=== PATIENT | male | born 1940 | race Caucasian/White ===

== ENCOUNTER 2017-12-19 13:40 | Emergency (ER) | payer MEDICARE ==
[2017-12-19 14:17] LABS: Absolute Lymphocytes (CBC) 1.6 K/uL (0.7-4.9); Absolute Monocytes 0.6 K/uL (0.1-1.3); Absolute Neutrophil 1.7 K/uL (1.8-8.0); Basophils % 0.3 % (0-1.3); Eosinophils % 0.5 % (0-4.4); Hematocrit 40.6 % (39.6-49.0); Lymphocytes % 40.4 % (15.3-44.8); MCH 34.7 pg (27.0-35.0); MPV 9.8 fL (7.6-11.3); Monocytes % 15.2 % (3.3-12.3); RBC Red Blood Cell Count 3.87 M/uL (4.33-5.43)
[2017-12-19 14:21] LABS: Protime INR 0.93
[2017-12-19 14:37] LABS: ALT/SGPT 23 U/L (12-78); AST/SGOT 39 U/L (15-37); Alkaline Phosphatase 145 U/L (45-117); BUN Blood Urea Nitrogen 6 mg/dL (7-18); Bicarbonate 23 mmol/L (21-32); Bilirubin Direct 0.1 mg/dL (0-0.2); Bilirubin Total 0.5 mg/dL (0.2-1.0); Creatine Phosphokinase 67 U/L (39-308); Glucose Level 63 mg/dL (74-106); Sodium Level 137 mmol/L (136-145)
[2017-12-19 14:38] LABS: Alcohol Serum/Plasma 157 mg/dL (0-3)
[2017-12-19] MEDS ORDERED: D50W 25 GM/50 ML SYRINGE IV ONE (14:52)
--- NOTE | 2017-12-19 15:15 | ER ---
Nurse's Notes [facility] Name: Durga Sequeira Age: 77 yrs Sex: Male : 1940 Arrival Date: 12/19/2017 Time: 13:42 Bed 4 Private MD: Diagnosis: Alcohol use, unspecified with intoxication Presentation: 12/19 13:51 Presenting complaint: EMS states: Patient found asleep in truck by EMS. 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 PAtient is alert to person and place. Combative and requesting to leave. Urinary incontinence noted. Patient diaphoretic and face is flushed. Transition of care: patient was not received from another setting of care. Onset of symptoms was December 19, 2017. Risk Assessment: Do you want to hurt yourself or someone else? Other: Patient is disoriented and agitated at this time. Initial Sepsis Screen: Does the patient meet any 2 criteria? No. Patient's initial sepsis screen is negative. Does the patient have a suspected source of infection? No. Patient's initial sepsis screen is negative. Care prior to arrival: None. 13:51 Method Of Arrival: EMS: [facility] 13:51 Acuity: LATANYA 2 Triage Assessment: 13:55 General: Appears in no apparent distress. slender, unkempt, Behavior is agitated, aj anxious, combative. Pain: Denies pain. Neuro: Level of Consciousness is awake, confused, Oriented to person, place, Services Executive are equal bilaterally Moves all extremities. Full function Speech is normal, Facial symmetry appears normal, Pupils are PERRLA. Respiratory: Airway is patent Respiratory effort is even, unlabored, Respiratory pattern is regular, symmetrical. GI: Abdomen is flat. Derm: Skin is intact, is fragile, is thin, Skin is pink, warm \T\ dry. normal, Bruising that is dark purple, on left cheek, left eye and palmar aspect of right forearm. Historical: - Allergies: 13:55 PENICILLINS; aj - Home Meds: 13:55 Unable to obtain [Active]; aj - PMHx: 13:55 Unable to obtain; aj - PSHx: 13:55 wrist sx; aj - Immunization history:: Adult Immunizations up to date. - Social history:: Smoking status: Patient uses tobacco products, chewing tobacco. - Ebola Screening: : Patient negative for fever greater than or equal to 101.5 degrees Fahrenheit, and additional compatible Ebola Virus Disease symptoms Patient denies exposure to infectious person Patient denies travel to an Ebola-affected area in the 21 days before illness onset No symptoms or risks identified at this time. Screenin:58 Abuse screen: Denies threats or abuse. Denies injuries from another. Nutritional aj screening: No deficits noted. Tuberculosis screening: No symptoms or risk factors identified. Fall Risk None identified. Assessment: 13:58 Reassessment: Security guards at bedside. aj 15:21 Reassessment: Patient's son Durga arrived and spoke with Nasim Overton about diagnosis. aj Patient ate half a turkey sandwich and drank a coke. Ambulated to lobby with son. [place] returned to son. Vital Signs: 13:55 BP 136 / 82; Pulse 100; Resp 20; Temp 98.9; Pulse Ox 98% on R/A; Weight 79.38 kg; aj Height 6 ft. 0 in. (182.88 cm); 15:21 aj 13:55 Body Mass Index 23.73 (79.38 kg, 182.88 cm) aj 15:21 Patient refused vital signs aj ED Course: 13:42 Patient arrived in ED. iw 13:45 Nasim Overton PA is PHCP. jrAlfredito 13:45 Benja Beth MD is Attending Physician. jrAlfredito 13:51 Heather Kent, JEREMY is Primary Nurse. aj 13:55 Triage completed. aj 13:55 Arm band placed on left wrist. Patient placed in an exam room, on a stretcher, on pulse aj oximetry. 13:58 Patient has correct armband on for positive identification. Bed in low position. Side aj rails up X2. Adult w/ patient. Pulse ox on. Sitter at bedside. Notified Charge Nurse of Patient's mental status and need for sitter. 13:59 Inserted saline lock: 20 gauge in right forearm, using aseptic technique. Blood aj collected. 15:21 No provider procedures requiring assistance completed. IV discontinued, intact, aj bleeding controlled. Administered Medications: 14:56 Drug: D50W 25 ml Route: IVP; Site: right antecubital; aj 15:24 Follow up: Response: No adverse reaction aj Outcome: 15:14 Discharge ordered by MD. jrAlfredito 15:23 Discharged to home ambulatory, with family. vasu 15:23 Condition: good 15:23 Discharge instructions given to patient, family, Instructed on discharge instructions, follow up and referral plans. Demonstrated understanding of instructions, follow-up care. 15:24 Patient left the ED. vasu Signatures: Heather Kent RN RN aj Williams, Irene, RN RN iw Roszak, Josh, PA PA jr8
--- NOTE | 2017-12-19 15:15 | EDPHYS ---
Physician Documentation [facility] Name: Durga Sequeira Age: 77 yrs Sex: Male : 1940 Arrival Date: 12/19/2017 Time: 13:42 Bed 4 Private MD: ED Physician Benja Beth HPI: 12/19 15:14 This 77 yrs old Male presents to ER via EMS with complaints of no complaint. jr8 15:14 The patient presents with agitation, confusion. Onset: The symptoms/episode jr8 began/occurred acutely, today. Possible causes: alcohol. Associated signs and symptoms: The patient has no apparent associated signs or symptoms. Current symptoms: In the emergency department the patient's symptoms are unchanged from the initial presentation. Patient's baseline: Neuro: alert and fully oriented, Motor: no deficits, Ambulation: walks without assistance, Speech: normal. It is unknown whether or not the patient has had similar symptoms in the past. It is unknown whether or not the patient has recently seen a physician. Patient brought in by EMS after they were called out because patient was falling outside getting out of truck. Stated that he smells of alcohol. Stated that patient was saying he was at his ex-wife apartment but they had found him at [facility] . Historical: - Allergies: 13:55 PENICILLINS; aj - Home Meds: 13:55 Unable to obtain [Active]; aj - PMHx: 13:55 Unable to obtain; aj - PSHx: 13:55 wrist sx; aj - Immunization history:: Adult Immunizations up to date. - Social history:: Smoking status: Patient uses tobacco products, chewing tobacco. - Ebola Screening: : Patient negative for fever greater than or equal to 101.5 degrees Fahrenheit, and additional compatible Ebola Virus Disease symptoms Patient denies exposure to infectious person Patient denies travel to an Ebola-affected area in the 21 days before illness onset No symptoms or risks identified at this time. ROS: 15:14 Eyes: Negative for injury, pain, redness, and discharge, ENT: Negative for injury, jr8 pain, and discharge, Neck: Negative for injury, pain, and swelling, Cardiovascular: Negative for chest pain, palpitations, and edema, Respiratory: Negative for shortness of breath, cough, wheezing, and pleuritic chest pain, Abdomen/GI: Negative for abdominal pain, nausea, vomiting, diarrhea, and constipation, Back: Negative for injury and pain, MS/Extremity: Negative for injury and deformity, Skin: Negative for injury, rash, and discoloration, Neuro: Negative for headache, weakness, numbness, tingling, and seizure. Exam: 15:14 Eyes: Pupils equal round and reactive to light, extra-ocular motions intact. Lids and jr8 lashes normal. Conjunctiva and sclera are non-icteric and not injected. Cornea within normal limits. Periorbital areas with no swelling, redness, or edema. ENT: Nares patent. No nasal discharge, no septal abnormalities noted. Tympanic membranes are normal and external auditory canals are clear. Oropharynx with no redness, swelling, or masses, exudates, or evidence of obstruction, uvula midline. Mucous membranes moist. Neck: Trachea midline, no thyromegaly or masses palpated, and no cervical lymphadenopathy. Supple, full range of motion without nuchal rigidity, or vertebral point tenderness. No Meningismus. Chest/axilla: Normal chest wall appearance and motion. Nontender with no deformity. No lesions are appreciated. Cardiovascular: Regular rate and rhythm with a normal S1 and S2. No gallops, murmurs, or rubs. Normal PMI, no JVD. No pulse deficits. Respiratory: Lungs have equal breath sounds bilaterally, clear to auscultation and percussion. No rales, rhonchi or wheezes noted. No increased work of breathing, no retractions or nasal flaring. Abdomen/GI: Soft, non-tender, with normal bowel sounds. No distension or tympany. No guarding or rebound. No evidence of tenderness throughout. Back: No spinal tenderness. No costovertebral tenderness. Full range of motion. Skin: Warm, dry with normal turgor. Normal color with no rashes, no lesions, and no evidence of cellulitis. MS/ Extremity: Pulses equal, no cyanosis. Neurovascular intact. Full, normal range of motion. 15:14 Constitutional: The patient appears alert, agitated, Patient is disheveled 15:14 Head/face: Noted is ecchymosis, that is mild, of the left side of forehead, left eye and left restorationism. 15:14 Neuro: Orientation: to person, place, situation, Mentation: lucid, able to follow commands, Memory: is normal, Cerebellar function: is grossly normal, Motor: moves all fours, Sensation: is normal, Gait: is steady, seizure activity, is not displayed by the patient, Abnormal movements: there are no abnormal movements. Vital Signs: 13:55 BP 136 / 82; Pulse 100; Resp 20; Temp 98.9; Pulse Ox 98% on R/A; Weight 79.38 kg; aj Height 6 ft. 0 in. (182.88 cm); 15:21 aj 13:55 Body Mass Index 23.73 (79.38 kg, 182.88 cm) aj 15:21 Patient refused vital signs aj MDM: 13:45 Patient medically screened. [facility] 15:13 Data reviewed: vital signs, nurses notes, lab test result(s), and as a result, I will jr discharge patient. Data interpreted: Pulse oximetry: on room air is 98 %. Interpretation: normal. Counseling: I had a detailed discussion with the patient and/or guardian regarding: the historical points, exam findings, and any diagnostic results supporting the discharge/admit diagnosis, lab results, the need for outpatient follow up, a family practitioner, to return to the emergency department if symptoms worsen or persist or if there are any questions or concerns that arise at home. 15:14 ED course: We were able to get a hold of son of patient. He came and evaluated mental jr8 status and stated that he is acting like he always dose and does not see any difference in his mentation. Advised that because of his recent falls today and at home that a head CT would be a good idea with the alcohol to make sure there is no intracranial process. Both patient and son declined. Released patient into sons custody to go home . 12/19 13:46 Order name: Basic Metabolic Panel; Complete Time: 14:41 12/19 13:46 Order name: CBC with Diff; Complete Time: 14:22 12/19 13:46 Order name: ETOH Level; Complete Time: 14:41 12/19 13:46 Order name: Hepatic Function; Complete Time: 14:41 12/19 13:46 Order name: PT-INR; Complete Time: 14:23 12/19 13:46 Order name: IV Saline Lock; Complete Time: 14:57 12/19 13:46 Order name: Labs collected and sent; Complete Time: 14:57 [facility] 12/19 13:46 Order name: CK; Complete Time: 14:41 [facility] 12/19 14:54 Order name: Diet Regular; Complete Time: 14:54 ag Administered Medications: 14:56 Drug: D50W 25 ml Route: IVP; Site: right antecubital; 15:24 Follow up: Response: No adverse reaction aj Disposition: 16:51 Co-signature as Attending Physician, Benja Beth MD. rn Disposition: 12/19/17 15:14 Discharged to Home. Impression: Alcohol use, unspecified with intoxication. - Condition is Stable. - Discharge Instructions: Alcohol Intoxication, Dehydration, Adult. - Medication Reconciliation Form, Thank You Letter, Antibiotic Education, Prescription Opioid Use form. - Follow up: Private Physician; When: 2 - 3 days; Reason: Recheck today's complaints, Continuance of care, Re-evaluation by your physician. - Problem is new. - Symptoms have improved. Signatures: Dispatcher [employer] EDHeather Hightower RN RN aj Nieto, Roman, MD MD rn Roszak, Josh, GOLD PA jr8 Corrections: (The following items were deleted from the chart) 14:57 13:46 EKG - Nurse/Tech ordered. [facility][1] 14:57 13:46 Urine Dipstick-Ancillary ordered. [facility][1] 15:24 15:14 12/19/2017 15:14 Discharged to Home. Impression: Alcohol use, unspecified with aj intoxication. Condition is Stable. Forms are Medication Reconciliation Form, Thank You Letter, Antibiotic Education, Prescription Opioid Use. Follow up: Private Physician; When: 2 - 3 days; Reason: Recheck today's complaints, Continuance of care, Re-evaluation by your physician. Problem is new. Symptoms have improved. jr8
== END 2017-12-19 15:24 | disposition home or self-care (01) ==
LOC: ER 13:40
DX: F10.129 Alcohol abuse with intoxication, unspecified (principal); Z72.0 Tobacco use; Z88.0 Allergy status to penicillin
CPT/HCPCS: 36415; 80048; 80076; 80320; 82550; 85025; 85610; 96374; 99285

== ENCOUNTER 2020-01-14 17:41 | Observation (INO) | payer OTHER ==
[2020-01-14 19:11] LABS: Absolute Lymphocytes (CBC) 1.2 K/uL (0.7-4.9); Basophils % 0.8 % (0-1.3); Hematocrit 39.9 % (39.6-49.0); Lymphocytes % 26.4 % (15.3-44.8); MPV 9.9 fL (7.6-11.3); RBC Red Blood Cell Count 4.32 M/uL (4.33-5.43)
[2020-01-14] MEDS ORDERED: FENTANYL CITR 100 MCG/2 ML ONE ×3 (19:14→20:39)
[2020-01-14] MEDS ORDERED: ONDANSETRON 4 MG/2 ML VIAL ONE ×2 (19:15→19:21)
[2020-01-14 19:28] LABS: ALT/SGPT 19 U/L (12-78); AST/SGOT 20 U/L (15-37); Albumin 3.3 g/dL (3.4-5.0); Alkaline Phosphatase 99 U/L (45-117); BUN Blood Urea Nitrogen 9 mg/dL (7-18); Bicarbonate 28 mmol/L (21-32); Bilirubin Direct 0.2 mg/dL (0-0.2); Bilirubin Total 0.5 mg/dL (0.2-1.0); Glucose Level 98 mg/dL (74-106); Lipase 151 U/L (73-393); Potassium 4.3 mmol/L (3.5-5.1); Protein, Total 6.1 g/dL (6.4-8.2); Sodium Level 132 mmol/L (136-145)
--- NOTE | 2020-01-14 19:38 | EDPHYS ---
Physician Documentation [facility] Name: Durga Sequeira Age: 79 yrs Sex: Male : 1940 Arrival Date: 01/14/2020 Time: 17:44 Bed 5 Private MD: ED Physician Wil Iraheta HPI: 01/13 19:17 This 79 yrs old Male presents to ER via Ambulatory with complaints of jr8 Abdominal Pain. 19:17 The patient presents with abdominal pain in the lower abdomen. Onset: The jr8 symptoms/episode began/occurred acutely, today. The symptoms do not radiate. Associated signs and symptoms: none. The symptoms are described as stabbing. Modifying factors: The symptoms are alleviated by nothing, the symptoms are aggravated by movement. Severity of pain: At its worst the pain was moderate in the emergency department the pain is unchanged. The patient has not experienced similar symptoms in the past. The patient has not recently seen a physician. Historical: - Allergies: 17:58 PENICILLINS; ll1 - PMHx: 17:58 Hypertension; prostate pills; ll1 - PSHx: 17:58 wrist sx; ll1 - Immunization history:: Adult Immunizations up to date. - Social history:: Smoking status: Patient reports the use of cigarette tobacco products, cigars, Patient uses alcohol, only on a social basis. Patient/guardian denies using street drugs. ROS: 19:17 Eyes: Negative for injury, pain, redness, and discharge, ENT: Negative for injury, jr8 pain, and discharge, Neck: Negative for injury, pain, and swelling, Cardiovascular: Negative for chest pain, palpitations, and edema, Respiratory: Negative for shortness of breath, cough, wheezing, and pleuritic chest pain, Back: Negative for injury and pain, MS/Extremity: Negative for injury and deformity, Skin: Negative for injury, rash, and discoloration, Neuro: Negative for headache, weakness, numbness, tingling, and seizure. 19:17 Abdomen/GI: Positive for abdominal pain, Negative for nausea, vomiting, and diarrhea, abdominal cramps, abdominal distension, anorexia, dysphagia, hematemesis, black/tarry stool, rectal pain, rectal bleeding, bowel incontinence, flatulence. Exam: 19:17 Cardiovascular: Regular rate and rhythm with a normal S1 and S2. No gallops, murmurs, jr8 or rubs. Normal PMI, no JVD. No pulse deficits. Respiratory: Lungs have equal breath sounds bilaterally, clear to auscultation and percussion. No rales, rhonchi or wheezes noted. No increased work of breathing, no retractions or nasal flaring. Back: No spinal tenderness. No costovertebral tenderness. Full range of motion. Skin: Warm, dry with normal turgor. Normal color with no rashes, no lesions, and no evidence of cellulitis. MS/ Extremity: Pulses equal, no cyanosis. Neurovascular intact. Full, normal range of motion. Neuro: Awake and alert, GCS 15, oriented to person, place, time, and situation. Cranial nerves II-XII grossly intact. Motor strength 5/5 in all extremities. Sensory grossly intact. Cerebellar exam normal. Normal gait. 19:17 Abdomen/GI: Inspection: abdomen appears normal, Bowel sounds: active, all quadrants, Palpation: abdomen is soft and non-tender, in all quadrants, Indicators: McBurney's point is not tender, Hamm's sign is negative, Rovsing's sign is negative, Liver: tenderness, is not appreciated, Hernia: noted in the left inguinal area, incarceration, that is moderate, tenderness, that is moderate. Vital Signs: 17:56 BP 157 / 85; Pulse 72; Resp 17; Temp 98.5; Pulse Ox 97% ; Pain 9/10; ll1 19:52 BP 149 / 72; Pulse 70; Resp 18; Pulse Ox 98% on R/A; ea 20:24 BP 140 / 74; Pulse 70; Resp 17; Pulse Ox 98% on R/A; ea MDM: 18:31 Patient medically screened. [facility] 19:34 Data reviewed: vital signs, nurses notes, lab test result(s), and as a result, I will [facility] admit patient. Data interpreted: Pulse oximetry: on room air is 97 %. Interpretation: normal. Counseling: I had a detailed discussion with the patient and/or guardian regarding: the historical points, exam findings, and any diagnostic results supporting the discharge/admit diagnosis, lab results, radiology results, the need for further work-up and treatment in the hospital. Physician consultation: Scooby Dill MD was called at 19:35, was contacted at 19:35, regarding consult, and will see patient in ED, shortly. 01/13 18:31 Order name: Basic Metabolic Panel; Complete Time: 19:33 [facility] 01/13 18:31 Order name: CBC with Diff; Complete Time: 19:56 [facility] 01/13 18:31 Order name: Hepatic Function; Complete Time: 19:33 [facility] 01/13 18:31 Order name: Lipase; Complete Time: 19:33 [facility] 01/13 19:47 Order name: CBC Smear Scan; Complete Time: 19:56 [facility] 01/13 20:24 Order name: Chest Single View [facility] 01/13 18:31 Order name: IV Saline Lock; Complete Time: 19:10 [facility] 01/13 18:31 Order name: Labs collected and sent; Complete Time: 19:10 [facility] 01/13 20:24 Order name: NPO [facility] 01/13 20:24 Order name: EKG Electrocardiogram EDMS Administered Medications: 19:05 Drug: Zofran (Ondansetron) 4 mg Route: IVP; Site: right forearm; em 19:53 Follow up: Response: No adverse reaction ea 19:07 Drug: fentaNYL (PF) 50 mcg Route: IVP; Site: right forearm; em 19:53 Follow up: Response: No adverse reaction ea 19:53 Follow up: Response: RASS: Alert and Calm (0) ea Disposition: 01/14 08:20 Co-signature as Attending Physician, Wil Iraheta MD I agree with the assessment and kdr plan of care. Disposition: 01/14/20 19:38 Hospitalization ordered by Jaya Tellez for Observation. Preliminary diagnosis is Left Inguinal Hernia with Strangulation. Not reducible . - Bed requested for Telemetry/MedSurg (observation). - Status is Observation. ea - Condition is Stable. - Problem is new. - Symptoms are unchanged. Signatures: Dispatcher [employer] [facility] Wil Iraheta MD MD kdr Munoz, Edgar, RN RN em Nasim Overton PA PA jr8 Kinjal Olivas RN RN ea Lewis, Lynsay, RN RN ll1 Corrections: (The following items were deleted from the chart) 01/13 20:25 19:38 Hospitalization Ordered by Jaya Tellez MD for Observation. Preliminary ea diagnosis is Left Inguinal Hernia with Strangulation. Not reducible . Bed requested for Telemetry/MedSurg (observation). Status is Observation. Condition is Stable. Problem is new. Symptoms are unchanged. jr8
--- NOTE | 2020-01-14 19:38 | ER ---
Nurse's Notes [facility] Name: Durga Sequeira Age: 79 yrs Sex: Male : 1940 Arrival Date: 01/14/2020 Time: 17:44 Bed 5 Private MD: Diagnosis: Left Inguinal Hernia with Strangulation. Not reducible Presentation: 01/13 17:56 Chief complaint: Patient states: Lower mid abdominal pain since noon getting worse. ll1 Coronavirus screen: Patient denies a cough. Patient denies shortness of breath or difficulty breathing. Patient denies measured and/or subjective temperature greater than 100.4F prior to today's visit. Patient denies travel on a cruise ship or to a country the [facility] currently lists as an affected area. Patient denies contact with known and/or suspected case of COVID-19. Proceed with normal triage. Ebola Screen: Patient denies travel to an Ebola-affected area in the 21 days before illness onset. Initial Sepsis Screen: Does the patient meet any 2 criteria? No. Patient's initial sepsis screen is negative. Risk Assessment: Do you want to hurt yourself or someone else? Patient reports no desire to harm self or others. Onset of symptoms was January 14, 2020. 17:56 Method Of Arrival: Ambulatory ll1 17:56 Acuity: LATANYA 3 ll1 19:53 Initial Sepsis Screen: Does the patient have a suspected source of infection? No. ea Patient's initial sepsis screen is negative. Historical: - Allergies: 17:58 PENICILLINS; ll1 - PMHx: 17:58 Hypertension; prostate pills; ll1 - PSHx: 17:58 wrist sx; ll1 - Immunization history:: Adult Immunizations up to date. - Social history:: Smoking status: Patient reports the use of cigarette tobacco products, cigars, Patient uses alcohol, only on a social basis. Patient/guardian denies using street drugs. Screenin:00 Abuse screen: Denies threats or abuse. Nutritional screening: No deficits noted. em Tuberculosis screening: No symptoms or risk factors identified. Fall Risk None identified. Assessment: 18:55 General: Appears in no apparent distress. uncomfortable, Behavior is calm, cooperative, em appropriate for age, Denies fever. Pain: Complains of pain in right lower quadrant, left lower quadrant and pelvis. Neuro: Level of Consciousness is awake, alert, obeys commands, Oriented to person, place, time, situation, Appropriate for age. Cardiovascular: Capillary refill < 3 seconds Patient's skin is warm and dry. Respiratory: Airway is patent Respiratory effort is even, unlabored, Respiratory pattern is regular, symmetrical. GI: Abdomen is flat, Bowel sounds present X 4 quads. Abd is soft X 4 quads Abdomen is tender to palpation in right lower quadrant and left lower quadrant Patient currently denies nausea, vomiting. Derm: Skin is intact, is fragile, is thin, Skin is pink, warm \T\ dry. Musculoskeletal: Range of motion: intact in all extremities. 19:27 General: Appears in no apparent distress. Behavior is calm, cooperative, appropriate ea for age. Pain: Complains of pain in left inguinal area. Neuro: Level of Consciousness is awake, alert, obeys commands, Oriented to person, place, time, situation. Cardiovascular: Patient's skin is warm and dry. Respiratory: Airway is patent Respiratory effort is even, unlabored, Respiratory pattern is regular, symmetrical. Derm: Skin is pink, warm \T\ dry. 19:50 Reassessment: Patient and/or family updated on plan of care and expected duration. Pain ea level reassessed. Patient is alert, oriented x 3, equal unlabored respirations, skin warm/dry/pink. Surgeon at bedside updating pt on plan of care. 20:24 Reassessment: Patient and/or family updated on plan of care and expected duration. Pain ea level reassessed. Patient is alert, oriented x 3, equal unlabored respirations, skin warm/dry/pink. Pt admitted to OR report given to OR nurse. Vital Signs: 17:56 BP 157 / 85; Pulse 72; Resp 17; Temp 98.5; Pulse Ox 97% ; Pain 9/10; ll1 19:52 BP 149 / 72; Pulse 70; Resp 18; Pulse Ox 98% on R/A; ea 20:24 BP 140 / 74; Pulse 70; Resp 17; Pulse Ox 98% on R/A; ea ED Course: 17:44 Patient arrived in ED. mr 17:57 Triage completed. ll1 17:58 Arm band placed on Patient placed in an exam room, on a stretcher. ll1 18:19 Lupillo Fagan, JEREMY is Primary Nurse. em 18:31 Nasim Overton PA is PHCP. jr8 18:31 Wil Iraheta MD is Attending Physician. jr8 19:04 Initial lab(s) drawn, by me, sent to lab. Inserted saline lock: 20 gauge in right em forearm, using aseptic technique. Blood collected. 19:27 Patient has correct armband on for positive identification. Placed in gown. Bed in low ea position. Call light in reach. 19:27 No provider procedures requiring assistance completed. ea 19:36 Jaya Tellez MD is Hospitalizing Provider. jr8 20:24 Patient admitted, IV remains in place. ea Administered Medications: 19:05 Drug: Zofran (Ondansetron) 4 mg Route: IVP; Site: right forearm; em 19:53 Follow up: Response: No adverse reaction ea 19:07 Drug: fentaNYL (PF) 50 mcg Route: IVP; Site: right forearm; em 19:53 Follow up: Response: No adverse reaction ea 19:53 Follow up: Response: RASS: Alert and Calm (0) ea Outcome: 19:38 Decision to Hospitalize by Provider. jr8 19:52 Instructed on the need for admit, Demonstrated understanding of instructions. ea 20:24 Admitted to OR accompanied by tech, via stretcher, with chart, Report called to Report ea given to OR nurse 20:24 Condition: stable 20:25 Patient left the ED. ea Signatures: Beverly Navarro mr FaganLupillo, RN JEREMY Nasim Overton PA PA jr8 Kinjal Olivas RN RN ea Lewis, Lynsay, RN RN ll1
[2020-01-14 19:46] LABS: Blood Morphology Comment NOT SEEN (NOT SEEN); Platelet Estimate DECR; Urine White Blood Cell Casts OK
[2020-01-14] MEDS ORDERED: ONDANSETRON 4 MG/2 ML VIAL IV PRN (20:19)
[2020-01-14] MEDS ORDERED: ACETAMINOPHEN 500 MG TAB PO PRN (20:19)
[2020-01-14] MEDS ORDERED: HYDROMORPHONE HCL 1 MG/ML INJ IV PRN (20:19)
[2020-01-14] MEDS ORDERED: BUPIVACA 0.25%/EPI 0.0005%/PF 30 ML VIAL ONE (20:26)
[2020-01-14] MEDS ORDERED: propofoL 200 MG/20 ML VIAL IV ONE (20:38)
[2020-01-14] MEDS ORDERED: ROCURONIUM 50 MG/5 ML VIAL IV ONE (20:39)
[2020-01-14] MEDS ORDERED: LIDOCAINE 2% MPF 5 ML VIAL ONE (20:39)
[2020-01-14] MEDS: Ringers Lactate 1,000 ML IV SCH ×3 (20:40→23:54)
[2020-01-14] MEDS ORDERED: SUCCINYLCHOLINE 20 MG/ML (10 ML) IV ONE (20:51)
[2020-01-14] MEDS ORDERED: KETOROLAC 30 MG/ML INJ ONE (21:05)
[2020-01-14] MEDS ORDERED: dexAMETHasone 10 MG/ML VIAL ONE (21:05)
[2020-01-14] MEDS ORDERED: NEOSTIGMINE 1 MG/ML -5 ML ONE (21:22)
[2020-01-14] MEDS ORDERED: GLYCOPYRROLATE 0.2 MG/ML SYR ONE (21:22)
[2020-01-14] MEDS ORDERED: CLINDAMYCIN IV 150 MG/ML (6 mL) VIAL ONE (21:24)
[2020-01-14] MEDS ORDERED: NA CHLORIDE 0.9% 100 ML ONE (21:25)
[2020-01-14] MEDS ORDERED: EPHEDRINE SULF 50 MG/ML VIAL ONE (21:25)
--- NOTE | 2020-01-14 21:54 | P.OP ---
Preoperative diagnosis: LEFT Incarcerated Inguinal Hernia - recurrent Postoperative diagnosis: LEFT Incarcerated Inguinal Hernia - recurrent Primary procedure: Open LEFT Inguinal Hernia Repair with Mesh Anesthesia: GETA + Local Estimated blood loss: <10cc Specimen: None Findings: Indirect Hernia, Evidence of prior hernia repair Complications: None Implants: Medium Bard Perfix Plug and Patch Transferred to: Recovery Room Condition: Good
[2020-01-14] MEDS ORDERED: HYDROCODONE/APAP 5/325 MG TAB PO PRN (22:08)
[2020-01-14 22:31] VITALS: O2SAT 96
[2020-01-14 23:41] VITALS: BMI 19.3
--- NOTE | 2020-01-14 23:50 | CON ---
Date of Consultation: 01/14/2020 Brief History Of Present Illness: The patient is an 79-year-old male, who presents to the hospital with complaints of abdominal pain in the left lower quadrant and a knot in his inguinal rosario on beginning earlier today. He is unaware of how long this knot has been present, but states that it became painful earlier today and tender to the touch. As such, he came to the emergency room with t he above-stated complaints. He has had no sick contacts. No recent travel. No new food exposures. No COVID exposures by his report. Past Medical History: Significant for hypertension, COPD, and prostate issues. Past Surgical History: He has had traumatic injury to his right lower extremity after an accident an d wrist surgery. He denies any intraabdominal surgery. He took Tylenol earlier in the day. Allergies: OTHERWISE, HE DENIES ALLERGIES. Social History: He uses cigars and has a past history of smoking cigarettes. He denies any other re creational drug use. Alcohol, he does have an alcohol abuse history in the past and drinks alcohol o n occasion by his report. Family History: Noncontributory. Review of Systems: Ten-point review of systems other than HPI, denies. Physical Examination: Vital Signs: At the time of my examination, his vital signs were stable. General: He is awake, alert, and oriented. Psychiatric: He is appropriate, conversive. HEENT: He is normocephalic. His sclerae were slightly injected. He appears to have cataracts. He does not open his left eyelid completely. His oropharynx is clear. Neck: Supple without JVD. Chest: Normal expansion and excursion. Cardiovascular: Regular rate and rhythm. Pulmonary: Clear to auscultation bilaterally. Abdomen: Soft. Focused examination of the left inguinal region finds that there is a tender, nonred ucible, strangulated, and incarcerated inguinal hernia, which is nonreducible. The patient is in exq uisite pain in this area and an attempt at reduction is not possible due to his significant level of pain. Extremities: Otherwise, no clubbing, cyanosis, or edema. Well-healed surgical scars are evident. Skin: Warm and dry, otherwise. Laboratory Data: He had a laboratory exam, reveals a white blood cell count 4.7, hemoglobin is 13.9, hematocrit 39.9, platelet count is 109, neutrophils 51%. His sodium 132, potassium 4.3, chloride 97 , carbon dioxide 28, BUN 9, creatinine 0.7, glucose is 98. Total bilirubin 0.5, direct component 0.2 . AST 20, ALT 19, alkaline phosphatase 99. His lipase is 151. He did not have any imaging performe d today. Assessment And Plan: This is an 79-year-old male, who comes in with signs and symptoms of incarcerat ed strangulated left inguinal hernia. 1.IV fluid hydration. 2.Antibiotic coverage. 3.I have explained the risks, benefits, and alternatives of open left inguinal hernia repair includi ng, but not limited to bleeding, infection, damage to surrounding tissues, need for further operation and procedures, injury to intestines, nerve injury, trouble with mesh and implanted devices. The atif mcmanus agrees to proceed as indicated. WATSON/FARRAH Voice ID: [id number] Report ID: [id number]
[2020-01-15] MEDS ORDERED: PIPER/TAZO/NS 3.375gm 3.375 GM/100 ML BAG IVPB SCH
--- NOTE | 2020-01-15 02:06 | OP ---
Date of Procedure: 01/14/2020 Surgeon: Scooby Dill MD, Preoperative Diagnosis: Left incarcerated inguinal hernia, likely recurrent. Postoperative Diagnosis: Left incarcerated inguinal hernia, likely recurrent. Procedure Performed: Open left inguinal hernia repair with mesh. Anesthesia: General endotracheal plus local with 0.5% Marcaine with epinephrine. Estimated Blood Loss: Less than 10 mL. Specimen: None. Findings: Indirect hernia, evidence of prior hernia repair as there was no external oblique aponeuro sis and significant scarring of the agent of the left inguinal region as well as what appeared to be a well-healed old scar in the region of the left inguinal hernia. Complications: None. Implants: Medium Bard PerFix plug and patch system. Disposition: Transferred to recovery room in good condition. Procedure In Detail: After informed was obtained, the patient was brought to the operating room, pre pped and draped in the usual sterile fashion after adequate anesthesia was achieved. I made an incis ion over the left inguinal region with a 15 blade down through subcutaneous tissues, electrocautery t o dissect down through Camper fat and Suleman fascia. I continued to dissect slowly meticulously usin g a combination of electrocautery and sharp dissection with Metzenbaum scissors. The area where the external oblique aponeurosis appeared to be violated as there was significant scarring to the area co nsistent with a previous prior surgical repair. There was also a skin incision prior to my skin inci yariel in a different orientation in the area of the inguinal region overlying where the hernia was. T herefore, this seems highly likely to be a recurrent inguinal hernia, although the patient gives no h istory when specifically asked if he has had an inguinal hernia surgery before in the past. As such, I continued the dissection down and exposed the remnants of the external oblique aponeurosis, which were torn thin and heavily scarred. Dissection continued down meticulously to expose the spermatic c ord and structures. This was encircled with Crestline drain and dissection continued down to find a he rnia sac of an indirect type coming from medial to the deep inguinal ring. I dissected this off the spermatic cord and structures circumferentially and created a sac in the preperitoneal space, reduced this back to the normal anatomic position including the intestinal contents, which were very easy to reduce when the patient was relaxed. As such, I brought a medium Bard PerFix plug and patch system onto the field and placed the plug into the preperitoneal space and secured this over the top using a 0 PDS suture in an interrupted fashion. I then sized a patch appropriately. The medium Bard PerFix plug and patch were sized appropriately, secured to the pubic tubercle and medial aspect on and onto the internal oblique tissue and under surface of the inguinal ring circumferentially using a 3 0 PDS suture in interrupted fashion reconstituting the deep ring as well. The area was copiously irrigate d multiple times and completely clear and dried. I then closed the Camper fat and Suleman fascia over the top wall protecting the spermatic cord and structures using a 3-0 Vicryl suture. I then irrigat ed the skin and closed with a 4-0 Monocryl in a running fashion, Dermabond placed over top. The celsa ent tolerated the procedure well without evidence of complication and was transferred to PACU in good condition. All counts were correct at the end of the case. WATSON/FARRAH Voice ID: [id number] Report ID: [id number]
--- NOTE | 2020-01-15 04:43 | P.HP ---
Certification for Inpatient Patient admitted to: Observation With expected LOS: <2 Midnights Patient will require the following post-hospital care: None Practitioner: I am a practitioner with admitting privileges, knowledge of patient current condition, hospital course, and medical plan of care. Services: Services provided to patient in accordance with Admission requirements found in Title 42 Section 412.3 of the Code of Federal Regulations Patient History Date of Service: 01/14/20 Reason for admission: Strangulated inguinal hernia History of Present Illness: Patient is a 79-year-old gentleman who came to the hospital with a strangulated inguinal hernia. Patient has a history of COPD and hypertension along with some dementia. He has had a prior hernia repair which she did not remember. He was taken to the operating room by Dr. Dill & had the hernia repaired. Patient was admitted to the floor for observation. If he does well postoperatively he should be able to go home. Will reassess in the morning and discuss with surgery and if they are agreeable then patient should be able to discharge on pain medicine and antibiotics. Allergies Penicillins Allergy (Verified 01/14/20 23:44) Unknown Home Medications: Hydralazine HCl 25 mg PO BID #60 tablet 01/15/20 - Past Medical/Surgical History Has patient received pneumonia vaccine in the past: No Diabetic: No -: dementia -: COPD -: Hypertension -: Prior hernia repair - Family History Father Family History: Reviewed- Non-Contributory - Social History Smoking Status: Never smoker Alcohol use: No CD- Drugs: No Caffeine use: Yes Place of Residence: Home Review of Systems 10-point ROS is otherwise unremarkable Physical Examination - Vital Signs Temperature: 96.8 F Blood Pressure: 165/79 Pulse: 69 Respirations: 16 Pulse Ox (%): 93 - Physical Exam General: Alert, In no apparent distress, Oriented x2, Demented HEENT: Atraumatic, PERRLA, Mucous membr. moist/pink, EOMI, Sclerae nonicteric Neck: Supple, 2+ carotid pulse no bruit, No LAD, Without JVD or thyroid abnormality Respiratory: Expiratory wheezes Cardiovascular: Regular rate/rhythm, Normal S1 S2, No murmurs Gastrointestinal: Normal bowel sounds, Soft and benign, Non-distended, No tenderness (Patient denies any tenderness ) Musculoskeletal: No clubbing, No swelling, No tenderness Integumentary: No rashes Neurological: Normal gait, Normal speech, Normal strength at 5/5 x4 extr, Normal tone, Sensation intact, Cranial nerves 3-12 intact, Normal affect Lymphatics: No axilla or inguinal lymphadenopathy - Studies Laboratory Data (last 24 hrs) 01/14/20 19:04: WBC 4.7, Hgb 13.8, Hct 39.9, Plt Count 109 L 01/14/20 19:04: Sodium 132 L, Potassium 4.3, BUN 9, Creatinine 0.71, Glucose 98, Total Bilirubin 0.5, AST 20, ALT 19, Alkaline Phosphatase 99, Lipase 151 Assessment & Plan - Problems (Diagnosis) (1) Strangulated inguinal hernia Status: Acute (2) COPD (chronic obstructive pulmonary disease) Status: Acute (3) Hypertension Status: Acute - Plan Plan: 1. IV fluids 2. IV antibiotics 3. Pain control 4. Diet as tolerated 5. Outpatient follow with PCP 6. GI and DVT prophylaxis Discharge Plan: Home Plan to discharge in: 24 Hours - Advance Directives Does patient have a Living Will: No Does patient have a Durable POA for Healthcare: No - Code Status/Comfort Care Code Status Assessed: Yes Code Status: Full Code Critical Care: No Time Spent Managing PTS Care (In Minutes): 45
[2020-01-15 05:57] LABS: Absolute Lymphocytes (CBC) 0.6 K/uL (0.7-4.9); Basophils % 0.2 % (0-1.3); Hematocrit 39.3 % (39.6-49.0); Lymphocytes % 8.4 % (15.3-44.8); MPV 10.9 fL (7.6-11.3); RBC Red Blood Cell Count 4.26 M/uL (4.33-5.43)
[2020-01-15 06:00] LABS: Protime INR 0.91
[2020-01-15 06:16] LABS: ALT/SGPT 18 U/L (12-78); AST/SGOT 18 U/L (15-37); Albumin 3.2 g/dL (3.4-5.0); Alkaline Phosphatase 83 U/L (45-117); BUN Blood Urea Nitrogen 10 mg/dL (7-18); Bicarbonate 29 mmol/L (21-32); Bilirubin Total 0.9 mg/dL (0.2-1.0); Glucose Level 130 mg/dL (74-106); Magnesium 2.3 mg/dL (1.8-2.4); Phosphorus 3.2 mg/dL (2.5-4.9); Protein, Total 5.9 g/dL (6.4-8.2); Sodium Level 134 mmol/L (136-145)
[2020-01-15] MEDS: HYDRALAZINE HCL 20 MG/ML VIAL IV ONE ×2 (06:32→06:59)
[2020-01-15] MEDS ORDERED: HYDRALAZINE HCL 25 MG TABLET PO SCH (08:00)
[2020-01-15] MEDS ORDERED: ENOXAPARIN 30 MG/0.3 ML SQ SCH (09:00)
[2020-01-19 14:29] VITALS: BP 165/79; TEMP 96.8
== END 2020-01-15 09:45 | disposition home or self-care (01) ==
LOC: ER 17:41 → ERHOLD 20:32 → 2ND 21:39
PROVIDERS: ADMIT Hospitalist; ATTEND Hospitalist
PROC: 0YU60JZ Supplement Left Inguinal Region with Synthetic Substitute, Open Approach (ICD-10-PCS; principal; 2020-01-14 20:30)
DX: K40.31 Unilateral inguinal hernia, with obstruction, without gangrene, recurrent (principal); I10 Essential (primary) hypertension; J44.9 Chronic obstructive pulmonary disease, unspecified; F17.290 Nicotine dependence, other tobacco product, uncomplicated; F03.90 Unspecified dementia, unspecified severity, without behavioral disturbance, psychotic disturbance, mood disturbance, and anxiety
CPT/HCPCS: 85025 ×2; 80048; 36415; 83735; 84100; 85610; 80076; 85730; 83690; 80053; 96375; 96374; 99285; 49521; U0002; J0360; J2704; J0330; J3010 ×2; J1100; J2710; G0378 ×3; J7120 ×2; J2405 ×2; J1650

== ENCOUNTER 2020-09-09 10:05 | Emergency (ER) | payer OTHER ==
[2020-09-09 10:57] LABS: Absolute Lymphocytes (CBC) 0.9 K/uL (0.7-4.9); Basophils % 0.6 % (0-1.3); Hematocrit 42.6 % (39.6-49.0); MPV 10.2 fL (7.6-11.3); RBC Red Blood Cell Count 4.54 M/uL (4.33-5.43)
[2020-09-09 11:02] LABS: BUN Blood Urea Nitrogen 9 mg/dL (7-18); Bicarbonate 30 mmol/L (21-32); Glucose Level 92 mg/dL (74-106); Potassium 3.9 mmol/L (3.5-5.1); Sodium Level 138 mmol/L (136-145)
--- NOTE | 2020-09-09 11:03 | RAD REPORT ---
EXAM DESCRIPTION: CT - [id number] - 09/09/2020 10:48 am CLINICAL HISTORY: Trauma, head and neck injury. fall, head injury COMPARISON: No comparisons TECHNIQUE: Axial 5 mm thick images of the head were obtained. Axial 2 mm thick images of the cervical spine were obtained with sagittal and coronal reconstruction images generated and reviewed. All CT scans are performed using dose optimization technique as appropriate and may include automated exposure control or mA/KV adjustment according to patient size. FINDINGS: CT HEAD WITHOUT CONTRAST: No acute hemorrhage, hydrocephalus or extra-axial collection is identified.Mild generalized brain atr ophy is noted.No areas of brain edema or midline shift. The paranasal sinuses and mastoids are clear.The calvarium is intact. CT CERVICAL SPINE WITHOUT CONTRAST: No fracture or subluxation.Mild to moderate cervical degenerative changes.No prevertebral soft tissue s swelling is identified. IMPRESSION: No acute intracranial or cervical spine findings.
--- NOTE | 2020-09-09 11:26 | EDPHYS ---
Physician Documentation [facility] Name: Durga Sequeira Age: 80 yrs Sex: Male : 1940 Arrival Date: 09/09/2020 Time: 10:09 Bed 4 Private MD: ED Physician Den Alexander HPI: 09/09 10:19 This 80 yrs old Male presents to ER via Ambulatory with complaints of Fall jmm Injury. 10:19 Details of fall: The patient fell from an upright position. Onset: The symptoms/episode jmm began/occurred acutely, this morning. Associated injuries: The patient sustained injury to the head. The patient has not experienced similar symptoms in the past. 10:19 This is an 80 year old male with a history of htn that presents to the ED after a fall jmm which occurred this morning. Daughter states the patient has multiple rashes which have been ongoing. Denies fever. . Historical: - Allergies: 10:19 PENICILLINS; ll1 - PMHx: 10:19 Hypertension; prostate pills; ll1 - PSHx: 10:19 wrist sx; ll1 - Immunization history:: Client reports receiving the 1st dose of the Covid vaccine, Flu vaccine is not up to date. - Social history:: Smoking status: Patient reports the use of cigarette tobacco products, cigars, Patient uses. - Immunization history: Last tetanus immunization: none per patient choice. ROS: 10:19 Constitutional: Negative for fever, chills, and weight loss, Cardiovascular: Negative jmm for chest pain, palpitations, and edema, Respiratory: Negative for shortness of breath, cough, wheezing, and pleuritic chest pain. 10:19 Skin: Positive for rash. 10:19 Neuro: Negative for headache, loss of consciousness. 10:19 All other systems are negative. Exam: 10:19 Constitutional: This is a well developed, well nourished patient who is awake, alert, jmm and in no acute distress. 10:19 Eyes: EOMI, no conjunctival erythema appreciated ENT: Moist Mucus Membranes Neck: Trachea midline, Supple Chest/axilla: Normal chest wall appearance and motion. Cardiovascular: Regular rate and rhythm. No edema appreciated Respiratory: Normal respirations, no respiratory distress appreciated Abdomen/GI: Non distended, soft Back: Normal ROM 10:19 Head/face: small laceration and hematoma noted to the posterior base of the skull. 10:19 Skin: ring worm noted to the right thigh, purpura noted ot the right arm, dermatitis noted to the left arm, back. 10:19 Neuro: Orientation: is normal, Mentation: is normal, Memory: is normal. 10:19 Psych: Behavior/mood is pleasant, cooperative. Vital Signs: 10:19 BP 162 / 88; Pulse 88; Resp 17; Temp 98.3; Pulse Ox 100% ; Weight 72.57 kg; Height 6 ll1 ft. 1 in. (185.42 cm); Pain 0/10; 10:19 Body Mass Index 21.11 (72.57 kg, 185.42 cm) ll1 Holly Coma Score: 10:45 Eye Response: spontaneous(4). Verbal Response: oriented(5). Motor Response: obeys ph commands(6). Total: 15. Trauma Score (Adult): 10:45 Eye Response: spontaneous(1); Verbal Response: oriented(1); Motor Response: obeys ph commands(2); Systolic BP: > 89 mm Hg(4); Respiratory Rate: 10 to 29 per min(4); [place] Score: 15; Trauma Score: 12 MDM: 10:19 Patient medically screened. [facility] 11:22 Data reviewed: vital signs, nurses notes. Counseling: I had a detailed discussion with [facility] the patient and/or guardian regarding: the historical points, exam findings, and any diagnostic results supporting the discharge/admit diagnosis, lab results, radiology results, the need for outpatient follow up, to return to the emergency department if symptoms worsen or persist or if there are any questions or concerns that arise at home. 09/09 10:27 Order name: CBC with Diff [facility] 09/09 10:27 Order name: BMP; Complete Time: 11:07 [facility] 09/09 10:27 Order name: Saline Lock; Complete Time: 10:32 [facility] 09/09 10:27 Order name: CT Head C Spine; Complete Time: 11:07 [facility] Administered Medications: No medications were administered Disposition: 17:52 Co-signature as Attending Physician, Den Alexander MD I agree with the assessment and tw4 plan of care. Disposition: 09/09/20 11:25 Discharged to Home. Impression: Unspecified injury of head, Rash and other nonspecific skin eruption. - Condition is Stable. - Discharge Instructions: Head Injury, Adult, Rash. - Prescriptions for Propranolol 10 mg Oral Tablet - take 1 tablet by ORAL route 2 times per day; 30 tablet. - Medication Reconciliation Form, Thank You Letter, Antibiotic Education, Prescription Opioid Use form. - Follow up: Private Physician; When: 2 - 3 days; Reason: Recheck today's complaints, Continuance of care, Re-evaluation by your physician. Signatures: Dispatcher [employer] EDMS Zack Pyle PA PA jmm Hall, Patricia, RN RN ph Den Alexander MD MD tw4 Zoie Lugo RN RN ll1 Corrections: (The following items were deleted from the chart) 11:40 11:25 09/09/2020 11:25 Discharged to Home. Impression: Unspecified injury of head; Rash ph and other nonspecific skin eruption. Condition is Stable. Forms are Medication Reconciliation Form, Thank You Letter, Antibiotic Education, Prescription Opioid Use. Follow up: Private Physician; When: 2 - 3 days; Reason: Recheck today's complaints, Continuance of care, Re-evaluation by your physician. ludmila
--- NOTE | 2020-09-09 11:26 | ER ---
Nurse's Notes [facility] Name: Durga Sequeira Age: 80 yrs Sex: Male : 1940 Arrival Date: 09/09/2020 Time: 10:09 Bed 4 Private MD: Diagnosis: Unspecified injury of head;Rash and other nonspecific skin eruption Presentation: 09/09 10:19 Chief complaint: Patient states: 1. Slipped in the bath tub today, has a small ll1 laceration to back of head. No active bleeding. No LOC. 2. Needs propanolol RX refilled. 3. Rash to L arm and R leg for weeks. Coronavirus screen: Client denies travel out of the [place] in the last 14 days. At this time, the client does not indicate any symptoms associated with coronavirus-19. Ebola Screen: Patient denies travel to an Ebola-affected area in the 21 days before illness onset. Initial Sepsis Screen: Does the patient meet any 2 criteria? No. Patient's initial sepsis screen is negative. Does the patient have a suspected source of infection? No. Patient's initial sepsis screen is negative. Risk Assessment: Do you want to hurt yourself or someone else? Patient reports no desire to harm self or others. Onset of symptoms was September 09, 2020. 10:19 Method Of Arrival: Ambulatory ll1 10:19 Acuity: LATANYA 3 ll1 10:45 Care prior to arrival: None. Mechanism of Injury: Fall from standing position. Trauma ph event details: Injury occurred in the [facility], Injury occurred: at home. Trauma Activation: Not Applicable Physician: ED Physician; Name: ; Notified At: ; Arrived At: Physician: General Surgeon; Name: ; Notified At: ; Arrived At: Physician: Radiology; Name: ; Notified At: ; Arrived At: Physician: Respiratory; Name: ; Notified At: ; Arrived At: Physician: Lab; Name: ; Notified At: ; Arrived At: Historical: - Allergies: 10:19 PENICILLINS; ll1 - PMHx: 10:19 Hypertension; prostate pills; ll1 - PSHx: 10:19 wrist sx; ll1 - Immunization history:: Client reports receiving the 1st dose of the Covid vaccine, Flu vaccine is not up to date. - Social history:: Smoking status: Patient reports the use of cigarette tobacco products, cigars, Patient uses. - Immunization history: Last tetanus immunization: none per patient choice. Screenin:26 Abuse screen: Denies threats or abuse. Denies injuries from another. Nutritional ph screening: No deficits noted. Tuberculosis screening: No symptoms or risk factors identified. Fall Risk None identified. Primary Survey: 10:45 NO uncontrolled hemorrhage observed. A: The patient is alert. Breathing/Chest: ph Respiratory effort: spontaneous, unlabored, Breath sounds: clear, bilaterally. Chest inspection: symmetrical rise and fall of the chest. Circulation: Skin color: pink, Skin temperature: warm, dry. Disability Alert. Exposure/Environment: All clothing and personal items were removed. Forensic evidence collection is not deemed to be indicated at this time. Items placed in patient belonging bag. There is no evidence of uncontrolled external bleeding. Obvious injury(ies) are noted at this time: abrasion to back of head, no active bleeding. 11:40 Reassessment Airway Airway Patent Breathing/Chest Respiratory pattern Regular ph Respiratory effort Spontaneous Unlabored Circulation Color Valliant Temperature Warm Dry Disability Alert. Secondary Survey: 10:45 HEENT: Head Other abrasion to back of head at base of scalp. ph Assessment: 10:48 General: Appears in no apparent distress. comfortable, slender, Behavior is calm, ph cooperative, appropriate for age. Pain: Denies pain. Neuro: Level of Consciousness is awake, alert, obeys commands, Oriented to person, place, time, situation. Neuro: Denies dizziness, headache. Cardiovascular: Capillary refill < 3 seconds in bilateral fingers Patient's skin is warm and dry. Respiratory: Airway is patent Respiratory effort is even, unlabored, Respiratory pattern is regular, symmetrical. GI: No signs and/or symptoms were reported involving the gastrointestinal system. Derm: Skin is fragile, is thin, Skin is pink, warm \T\ dry. Musculoskeletal: Circulation, motion, and sensation intact. Range of motion: intact in all extremities. 10:48 Injury Description: Abrasion sustained to base of the skull. ph Vital Signs: 10:19 BP 162 / 88; Pulse 88; Resp 17; Temp 98.3; Pulse Ox 100% ; Weight 72.57 kg; Height 6 ll1 ft. 1 in. (185.42 cm); Pain 0/10; 10:19 Body Mass Index 21.11 (72.57 kg, 185.42 cm) ll1 Holly Coma Score: 10:45 Eye Response: spontaneous(4). Verbal Response: oriented(5). Motor Response: obeys ph commands(6). Total: 15. Trauma Score (Adult): 10:45 Eye Response: spontaneous(1); Verbal Response: oriented(1); Motor Response: obeys ph commands(2); Systolic BP: > 89 mm Hg(4); Respiratory Rate: 10 to 29 per min(4); Holly Score: 15; Trauma Score: 12 ED Course: 10:09 Patient arrived in ED. ds1 10:12 Candace Mooney, RN is Primary Nurse. ph 10:15 Zack Pyle PA is PHCP. jmm 10:15 Den Alexander MD is Attending Physician. jmm 10:18 Arm band placed on Patient placed in an exam room, on a stretcher. ll1 10:21 Triage completed. ll1 10:26 Patient has correct armband on for positive identification. Bed in low position. Call ph light in reach. Side rails up X 1. Pulse ox on. NIBP on. Door closed. Noise minimized. 10:45 Inserted saline lock: 20 gauge in left forearm, using aseptic technique. IV ph discontinued, intact, bleeding controlled, No redness/swelling at site. Pressure dressing applied. 10:45 Thermoregulation: warm blanket given to patient. ph 10:48 CT Head C Spine In Process Unspecified. EDMS 11:39 No provider procedures requiring assistance completed. ph 11:40 Patient maintains SpO2 saturation greater than 95% on room air. ph Administered Medications: No medications were administered Intake: 10:45 PO: 0ml; Total: 0ml. ph Output: 10:45 Urine: 0ml; Total: 0ml. ph Outcome: 11:25 Discharge ordered by MD. jmm 11:40 Discharged to home ambulatory, with family. ph 11:40 Condition: good 11:40 Discharge instructions given to patient, family, Instructed on discharge instructions, follow up and referral plans. medication usage, Demonstrated understanding of instructions, follow-up care, medications, Prescriptions given X 1. 11:40 Patient's length of stay was not longer than 2 hours. 11:40 Patient left the ED. ph Signatures: Dispatcher [employer] EDMS MicZack sr PA PA jmm Sanford, Demi ds1 Candace Mooney, RN RN ph Zoie Lugo RN RN ll1
[2020-09-09 11:47] VITALS: BP 162/88; TEMP 98.3; O2SAT 100
[2020-09-09 11:55] LABS: Platelet Estimate DECR; Platelets, Giant FEW; White Blood Cell Scan OK (OK)
[2020-09-09 11:56] LABS: Blood Morphology Comment NOT SEEN (NOT SEEN)
== END 2020-09-09 11:40 | disposition home or self-care (01) ==
LOC: ER 10:05
DX: S00.01XA Abrasion of scalp, initial encounter (principal); R21 Rash and other nonspecific skin eruption; W01.198A Fall on same level from slipping, tripping and stumbling with subsequent striking against other object, initial encounter; Y93.E1 Activity, personal bathing and showering; Y92.9 Unspecified place or not applicable; I10 Essential (primary) hypertension; Z88.0 Allergy status to penicillin
CPT/HCPCS: 36415; 70450; 72125; 80048; 85025; 99284

== ENCOUNTER 2021-12-23 14:52 | Emergency (ER) | payer OTHER ==
[2021-12-23 15:22] LABS: Urine Blood Trace-intact (Negative); Urine Glucose Negative (Negative); Urine Protein Negative (Negative); Urine Specific Gravity 1.015 (1.005-1.030)
[2021-12-23 15:23] LABS: Hematocrit 41.4 % (39.6-49.0); Lymphocytes % 21.9 % (15.3-44.8)
[2021-12-23] MEDS ORDERED: NA CHLORIDE 0.9% 2,000 ML ONE (15:28)
[2021-12-23] MEDS ORDERED: THIAMINE 200 MG/2 ML INJ ONE (15:28)
[2021-12-23] MEDS ORDERED: MULTIVITAMINS 10 ML VIAL (INJ) IV ONE (15:29)
[2021-12-23] MEDS ORDERED: FOLIC ACID 5 MG/ML VIAL ONE (15:30)
[2021-12-23 15:40] LABS: Albumin 3.2 g/dL (3.4-5.0); Bilirubin Direct 0.2 mg/dL (0-0.2); Bilirubin Total 0.8 mg/dL (0.2-1.0); Magnesium 2.5 mg/dL (1.8-2.4); Potassium 3.4 mmol/L (3.5-5.1); Protein, Total 6.2 g/dL (6.4-8.2)
[2021-12-23 15:43] LABS: Troponin High Sensitivity 9.2 pg/mL (<58.9)
--- NOTE | 2021-12-23 15:59 | ER ---
Nurse's Notes [facility] Name: Durga Sequeira Age: 81 yrs Sex: Male : 1940 Arrival Date: 12/23/2021 Time: 15:02 Bed 2 Private MD: Diagnosis: Muscle weakness (generalized) Presentation: 12/23 15:03 Chief complaint: Patient's son or daughter states: My dad was at my house today - it ld1 was really hot, I noticed my Father in Law was sweating a lot and very weak. Dad went home and EMS was toned out due to pt falling on ground, weak/unable to make it back into apartment. Denies LOC - did not hit head. Coronavirus screen: At this time, the client does not indicate any symptoms associated with coronavirus-19. Ebola Screen: No symptoms or risks identified at this time. Initial Sepsis Screen: Does the patient meet any 2 criteria? No. Patient's initial sepsis screen is negative. Does the patient have a suspected source of infection? No. Patient's initial sepsis screen is negative. Risk Assessment: Do you want to hurt yourself or someone else? Patient reports no desire to harm self or others. Onset of symptoms was December 23, 2021. 15:03 Method Of Arrival: EMS: [facility] ld1 15:03 Acuity: LATANYA 3 ld1 Triage Assessment: 15:06 General: Appears in no apparent distress. comfortable, Behavior is cooperative, ld1 anxious. Pain: Denies pain. EENT: No signs and/or symptoms were reported regarding the EENT system. Neuro: Level of Consciousness is awake, alert, obeys commands, Oriented to person, place, time, situation, Appropriate for age. Cardiovascular: Capillary refill < 3 seconds Patient's skin is warm and dry. Rhythm is sinus rhythm. Respiratory: Airway is patent Respiratory effort is even, unlabored. GI: Abdomen is flat, non-distended. : No signs and/or symptoms were reported regarding the genitourinary system. Derm: No signs and/or symptoms reported regarding the dermatologic system. Musculoskeletal: No signs and/or symptoms reported regarding the musculoskeletal system. Historical: - Allergies: 15:06 PENICILLINS; ld1 - PMHx: 15:06 Hypertension; prostate pills; ld1 - PSHx: 15:06 None; ld1 - Immunization history:: Adult Immunizations up to date, Client reports receiving the 2nd dose of the Covid vaccine. - Social history:: Smoking status: Patient reports use of chewing tobacco. Patient uses alcohol, on a daily basis. claims drinking about a 6 pack/day. - Family history:: not pertinent. Screenin:46 Abuse screen: Denies threats or abuse. Denies injuries from another. Nutritional ld1 screening: No deficits noted. Tuberculosis screening: No symptoms or risk factors identified. Fall Risk None identified. Assessment: 17:46 Reassessment: Patient appears in no apparent distress at this time. See triage ld1 assessment. Vital Signs: 15:03 BP 112 / 69; Pulse 75; Resp 18; Temp 98.0(TE); Pulse Ox 94% on R/A; Weight 49.9 kg; ld1 Height 6 ft. 1 in. (185.42 cm); Pain 0/10; 16:47 BP 108 / 79; Pulse 87; Resp 20; Pulse Ox 95% on R/A; ld1 17:15 BP 156 / 89; Pulse 71; Resp 22; Pulse Ox 95% on R/A; ld1 15:03 Body Mass Index 14.51 (49.90 kg, 185.42 cm) ld1 ED Course: 15:02 Patient arrived in ED. ld1 15:04 Jaya Graf MD is Attending Physician. ma2 15:06 Triage completed. ld1 15:06 Arm band placed on right wrist. ld1 15:12 Inserted saline lock: 20 gauge in right antecubital area, using aseptic technique. mb7 Blood collected. 15:29 Maddy Gaytan, JEREMY is Primary Nurse. ld1 16:18 XRAY Chest (1 view) In Process Unspecified. EDMS 17:46 Patient has correct armband on for positive identification. Placed in gown. Bed in low ld1 position. Call light in reach. Side rails up X2. traffic monitor specialist on. Pulse ox on. NIBP on. Door closed. Noise minimized. 17:46 No provider procedures requiring assistance completed. IV discontinued, intact, ld1 bleeding controlled, No redness/swelling at site. Administered Medications: 15:29 Drug: NS 0.9% 1000 ml Route: IV; Rate: 1 bolus; Site: right antecubital; ld1 15:29 Drug: Banana Bag - (NS 0.9% 1000 ml, foLIC Acid 1 mg, Thiamine 100 mg, Multivitamin 1 ld1 amp) Route: IV; Rate: calculated rate; Site: right antecubital; 16:06 Drug: Potassium Chloride 40 mEq Route: PO; ld1 16:06 Drug: Magnesium Sulfate 2 grams Route: IVPB; Infused Over: 2 hrs; Site: right ld1 antecubital; Medication: 17:46 VIS not applicable for this client. ld1 Outcome: 15:58 Discharge ordered by . ma2 17:46 Discharged to home via wheelchair, with family. ld1 17:46 Condition: stable 17:46 Discharge instructions given to patient, Instructed on discharge instructions, follow up and referral plans. Demonstrated understanding of instructions, follow-up care. 17:47 Patient left the ED. ld1 Signatures: Dispatcher [employer] EDMS Jaya Graf MD MD ma2 Maddy Gaytan RN RN ld1 Beverly Alvarez mb7
--- NOTE | 2021-12-23 15:59 | EDPHYS ---
Physician Documentation [facility] Name: Durga Sequeira Age: 81 yrs Sex: Male : 1940 Arrival Date: 12/23/2021 Time: 15:02 Bed 2 Private MD: ED Physician Jaya Graf HPI: 12/23 15:12 This 81 yrs old Male presents to ER via EMS with complaints of General Weakness. ma2 15:12 81-year-old male he is a heavy alcohol drinker according to daughter, he has been ma2 having weakness for 3 days, unable to walk due to weakness, when I interviewed the patient he states that he feels good he has no symptoms and specifically has no head trauma no pain anywhere no cough fever or diarrhea. Patient states he does not want to be here and he would like to be discharged. He is ANO x4. I had lengthy discussion with the patient and he agrees to get some testing to see if there is electrolyte that need to be repleted before he goes. He agrees to stay an hour in the ER.. Historical: - Allergies: 15:06 PENICILLINS; ld1 - PMHx: 15:06 Hypertension; prostate pills; ld1 - PSHx: 15:06 None; ld1 - Immunization history:: Adult Immunizations up to date, Client reports receiving the 2nd dose of the Covid vaccine. - Social history:: Smoking status: Patient reports use of chewing tobacco. Patient uses alcohol, on a daily basis. claims drinking about a 6 pack/day. - Family history:: not pertinent. ROS: 15:12 Constitutional: Negative for fever, chills, and weight loss. ma2 15:12 All other systems are negative. Exam: 15:12 Constitutional: This is a well developed, well nourished patient who is awake, alert, ma2 and in no acute distress. Head/Face: Normocephalic, atraumatic. Eyes: Pupils equal round and reactive to light, extra-ocular motions intact. Lids and lashes normal. Conjunctiva and sclera are non-icteric and not injected. Cornea within normal limits. Periorbital areas with no swelling, redness, or edema. ENT: Nares patent. No nasal discharge, no septal abnormalities noted. Tympanic membranes are normal and external auditory canals are clear. Oropharynx with no redness, swelling, or masses, exudates, or evidence of obstruction, uvula midline. Mucous membranes moist. Neck: Trachea midline, no thyromegaly or masses palpated, and no cervical lymphadenopathy. Supple, full range of motion without nuchal rigidity, or vertebral point tenderness. No Meningismus. Chest/axilla: Normal chest wall appearance and motion. Nontender with no deformity. No lesions are appreciated. Cardiovascular: Regular rate and rhythm with a normal S1 and S2. No gallops, murmurs, or rubs. Normal PMI, no JVD. No pulse deficits. Respiratory: Lungs have equal breath sounds bilaterally, clear to auscultation and percussion. No rales, rhonchi or wheezes noted. No increased work of breathing, no retractions or nasal flaring. Abdomen/GI: Soft, non-tender, with normal bowel sounds. No distension or tympany. No guarding or rebound. No evidence of tenderness throughout. Skin: Warm, dry with normal turgor. Normal color with no rashes, no lesions, and no evidence of cellulitis. MS/ Extremity: Pulses equal, no cyanosis. Neurovascular intact. Full, normal range of motion. Neuro: Awake and alert, GCS 15, oriented to person, place, time, and situation. Cranial nerves II-XII grossly intact. Motor strength 5/5 in all extremities. Sensory grossly intact. Cerebellar exam normal. Normal gait. Vital Signs: 15:03 BP 112 / 69; Pulse 75; Resp 18; Temp 98.0(TE); Pulse Ox 94% on R/A; Weight 49.9 kg; ld1 Height 6 ft. 1 in. (185.42 cm); Pain 0/10; 16:47 BP 108 / 79; Pulse 87; Resp 20; Pulse Ox 95% on R/A; ld1 17:15 BP 156 / 89; Pulse 71; Resp 22; Pulse Ox 95% on R/A; ld1 15:03 Body Mass Index 14.51 (49.90 kg, 185.42 cm) ld1 MDM: 15:05 Patient medically screened. ma2 15:12 Differential Diagnosis Differential diagnoses include hypokalemia, hyperkalemia, ma2 hypomagnesemia, versus thiamine deficiency, versus pneumonia.. Data reviewed: vital signs, nurses notes. Counseling: I had a detailed discussion with the patient and/or guardian regarding: the historical points, exam findings, and any diagnostic results supporting the discharge/admit diagnosis, the presence of at least one elevated blood pressure reading (>120/80) during this emergency department visit, the need for outpatient follow up. Response to treatment: the patient's symptoms have markedly improved after treatment. 12/23 15:10 Order name: Basic Metabolic Panel; Complete Time: 15:46 [facility] 12/23 15:10 Order name: CBC with Diff [facility] 12/23 15:10 Order name: LFT's; Complete Time: 15: [facility] 12/23 15:10 Order name: Magnesium; Complete Time: 15: [facility] 12/23 15:10 Order name: NT PRO-BNP; Complete Time: : ms12/23 15:10 Order name: Troponin HS; Complete Time: : ms12/23 15:10 Order name: XRAY Chest (1 view); Complete Time: 17:00 [facility] 12/23 15:10 Order name: EKG; Complete Time: 15:11 [facility] 12/23 15:10 Order name: Cardiac monitoring; Complete Time: 15:13 ms12/23 15:23 Order name: Urine Dipstick-Ancillary; Complete Time: 15:46 [facility] 12/23 15:10 Order name: EKG - Nurse/Tech; Complete Time: 15:21 ms12/23 15:10 Order name: IV Saline Lock; Complete Time: 15: [facility] 12/23 15:10 Order name: Labs collected and sent; Complete Time: 15:29 [facility] 12/23 15:10 Order name: O2 Per Protocol; Complete Time: 15: [facility] 12/23 15:10 Order name: O2 Sat Monitoring; Complete Time: 15:13 [facility] 12/23 15:10 Order name: Urine Dipstick-Ancillary (obtain specimen); Complete Time: 15:29 ma Administered Medications: 15:29 Drug: NS 0.9% 1000 ml Route: IV; Rate: 1 bolus; Site: right antecubital; ld1 15:29 Drug: Banana Bag - (NS 0.9% 1000 ml, foLIC Acid 1 mg, Thiamine 100 mg, Multivitamin 1 ld1 amp) Route: IV; Rate: calculated rate; Site: right antecubital; 16:06 Drug: Potassium Chloride 40 mEq Route: PO; ld1 16:06 Drug: Magnesium Sulfate 2 grams Route: IVPB; Infused Over: 2 hrs; Site: right ld1 antecubital; Disposition Summary: 12/23/21 15:58 Discharge Ordered Location: Home ma2 Condition: Stable ma2 Diagnosis - Muscle weakness (generalized) ma2 Followup: ma2 - With: Private Physician - When: Tomorrow - Reason: If symptoms return Discharge Instructions: - Discharge Summary Sheet ma2 - Weakness, [id number] ma2 Forms: - Medication Reconciliation Form ma2 - Thank You Letter ma2 - Antibiotic Education ma2 - Prescription Opioid Use ma2 Signatures: Dispatcher [employer] EDMS Jaya Graf MD MD ma2 Maddy Gaytan RN RN ld1
[2021-12-23] MEDS ORDERED: POTASSIUM CL SA 10 MEQ TAB PO ONE (16:06)
[2021-12-23] MEDS ORDERED: Magnesium Sulfate 2gm IVPB 2 G/50 ML BAG IV ONE (16:06)
--- NOTE | 2021-12-23 16:45 | RAD REPORT ---
EXAM DESCRIPTION: RAD - Chest Single View - 12/23/2021 4:16 pm CLINICAL HISTORY: CONGESTION COMPARISON: Two view chest July 2018 TECHNIQUE: AP portable chest image was obtained 12/23/2021 4:16 pm . FINDINGS: No acute lung parenchymal process seen. Interstitial pattern, accentuated by shallow inspi ration, is not clearly different from comparison. Hilar regions within normal limits. Heart and vascu lature are normal. No measurable pleural effusion and no pneumothorax. No acute bony abnormality seen . No acute aortic findings suspected. IMPRESSION: No acute cardiopulmonary process. No significant change from comparison study.
[2021-12-23 17:55] VITALS: TEMP 98
[2021-12-23 17:57] LABS: Blood Morphology Comment NOT SEEN (NOT SEEN); Platelet Estimate DECR; White Blood Cell Scan OK (OK)
[2021-12-23 18:00] VITALS: O2SAT 95
[2021-12-23 18:02] VITALS: BP 156/89
--- NOTE | 2021-12-24 14:41 | EKG ---
Test Date: 2021-12-23 Test Time: 15:21:18 Operations Program Manager: CANDIS MEASUREMENT RESULTS: Intervals: Rate: 75 SD: 222 QRSD: 90 QT: 404 QTc: 451 [place]: P: 55 SD: 222 QRS: 44 T: 37 INTERPRETIVE STATEMENTS: Sinus rhythm with 1st degree AV block Otherwise normal ECG No previous ECG available for comparison Electronically Signed On 12-24-21 14:40:35 CDT by Avery Mclaughlin
== END 2021-12-23 17:47 | disposition home or self-care (01) ==
LOC: ER 14:52
DX: M62.81 Muscle weakness (generalized) (principal); I10 Essential (primary) hypertension; Z88.0 Allergy status to penicillin; Z72.0 Tobacco use
CPT/HCPCS: 93005; 85025; 80048; 36415; 83735; 80076; 81003; 84484; 83880; 71045; 96375; 96374; 99284; J3411; J3475; J7030

== ENCOUNTER 2022-02-24 18:58 | Emergency (ER) | payer OTHER ==
--- NOTE | 2022-02-24 19:20 | ER ---
Nurse's Notes [facility] Name: Durga Sequeira Age: 81 yrs Sex: Male : 1940 Arrival Date: 02/24/2022 Time: 19:04 Bed 15 Private MD: Diagnosis: Unspecified injury of head, initial encounter;Contusion of scalp;Abrasion of scalp;Laceration without foreign body of scalp;Abrasion of right forearm Presentation: 02/24 19:04 Chief complaint: EMS states: patient states he slipped and fell on a slick spot on the [facility] living room floor. Patient did not have any LOC and has a small laceration to the right back of his head. Coronavirus screen: At this time, the client does not indicate any symptoms associated with coronavirus-19. Ebola Screen: No symptoms or risks identified at this time. Initial Sepsis Screen: Does the patient meet any 2 criteria? No. Patient's initial sepsis screen is negative. Does the patient have a suspected source of infection? No. Patient's initial sepsis screen is negative. Risk Assessment: Do you want to hurt yourself or someone else? Patient reports no desire to harm self or others. Onset of symptoms was February 24, 2022. 19:04 Method Of Arrival: EMS: [place] [id number] 19:04 Acuity: LATANYA 2 [facility] 19:09 Care prior to arrival: laceration to the back of the right of the head wrapped with 7 kerlix. 19:10 Mechanism of Injury: Fall from standing position. Trauma event details: Injury occurred [facility] in the [facility], Injury occurred: at home. Injury occurred: February 24, 2022. Triage Assessment: 19:06 General: Appears in no apparent distress. uncomfortable, slender, Behavior is anxious, bm7 restless, uncooperative. Pain: Denies pain. EENT: No deficits noted. No signs and/or symptoms were reported regarding the EENT system. Neuro: Level of Consciousness is awake, alert, obeys commands, Oriented to person, place, Extras Casting Director are equal bilaterally Moves all extremities. Gait is unsteady, Facial droop on left, ex states he has had a droop to the left eye for years . Pupils are PERRLA, Denies blurred vision headache. Cardiovascular: No deficits noted. Respiratory: No deficits noted. GI: No deficits noted. No signs and/or symptoms were reported involving the gastrointestinal system. : No deficits noted. No signs and/or symptoms were reported regarding the genitourinary system. Derm: Skin is fragile, is thin, Skin is dry, Skin is normal. Musculoskeletal: No deficits noted. No signs and/or symptoms reported regarding the musculoskeletal system. Injury Description: Laceration sustained to right side of the back of head is jagged, 2.6 to 7.5 cm long, no active bleeding noted at this time. Trauma Activation: Physician: ED Physician; Name: FRAN; Notified At: ; Arrived At: Physician: General Surgeon; Name: ; Notified At: ; Arrived At: Physician: Radiology; Name: ; Notified At: ; Arrived At: Physician: Respiratory; Name: ; Notified At: ; Arrived At: Physician: Lab; Name: ; Notified At: ; Arrived At: Historical: - Allergies: 19:06 PENICILLINS; bm7 - PMHx: 19:06 Hypertension; Dementia; bm7 - PSHx: 19:06 Unable to Obtain; bm7 - Immunization history:: Adult Immunizations unknown. - Social history:: Smoking status: Patient denies any tobacco usage or history of. - Immunization history: Last tetanus immunization: unknown. Screenin:10 Abuse screen: Denies threats or abuse. Tuberculosis screening: No symptoms or risk bm7 factors identified. 21:12 Nutritional screening: No deficits noted. Fall Risk Fall in past 12 months (25 points). bm7 Primary Survey: 19:10 NO uncontrolled hemorrhage observed. A: The client is awake and alert. The airway is bm7 patent. Breathing/Chest: Spontaneous respiratory effort, equal unlabored respirations, breath sounds clear bilaterally, regular pattern, symmetrical chest rise and fall. Respiratory effort: spontaneous, unlabored, Breath sounds: clear, bilaterally. Respiratory pattern: regular. Circulation: No external hemorrhage present. Regular and strong central pulse, skin warm/dry/normal color. Disability Pupils are equal, round, reactive to light and accommodation. Client is alert. Client responds to verbal stimuli. Client reponds to painful stimuli. Exposure/Environment: A warming method has been applied: A warm blanket has been provided to the patient. Assessment: 19:10 Reassessment: No changes from previously documented assessment. General: Appears in no bm7 apparent distress. 20:47 Reassessment: pt is alert and awake, awaiting provider for procedure Dr Iraheta at bedside. Vital Signs: 19:04 BP 109 / 72; Pulse 70; Resp 16; Temp 98.0(TE); Pulse Ox 100% on R/A; Weight 74.84 kg bm7 (R); Height 6 ft. 1 in. (185.42 cm); Pain 0/10; 20:47 BP 128 / 79; Pulse 60; Resp 16 S; Pulse Ox 97% on R/A; bb 21:11 BP 143 / 80; Pulse 70; Resp 16; Temp 98.1(O); Pulse Ox 99% on R/A; Pain 0/10; bm7 19:04 Body Mass Index 21.77 (74.84 kg, 185.42 cm) bm7 Harvey Coma Score: 19:10 Eye Response: spontaneous(4). Verbal Response: confused(4). Motor Response: obeys bm7 commands(6). Total: 14. Trauma Score (Adult): 19:10 Eye Response: spontaneous(1); Verbal Response: confused(1); Motor Response: obeys bm7 commands(2); Systolic BP: > 89 mm Hg(4); Respiratory Rate: 10 to 29 per min(4); Harvey Score: 14; Trauma Score: 12 ED Course: 19:04 Patient arrived in ED. bm7 19:06 Triage completed. bm7 19:06 Arm band placed on right wrist. bm7 19:07 Wil Iraheta MD is Attending Physician. kdr 19:10 Patient has correct armband on for positive identification. Placed in gown. Bed in low bm7 position. Call light in reach. Side rails up X2. Adult w/ patient. Patient maintains SpO2 saturation greater than 95% on room air. 19:10 Patient maintains SpO2 saturation greater than 95% on room air. bm7 19:11 Antoinette Singh, RN is Primary Nurse. bm7 19:[address] bm7 19:29 CT Head C Spine In Process Unspecified. EDMS 20:55 Wound care: to laceration located on right parietal area was cleaned with Betadine, mh5 Patient tolerated well. 20:57 Warm blanket given. Pulse ox on. NIBP on. mh5 21:12 Assist provider with laceration repair on scalp and right parietal area that was bm7 between 2.6 to 7.5 cm using enid. Set up tray. Performed by Wil Iraheta MD Dressed with 4X4s, Patient tolerated well. Patient did not have IV access during this emergency room visit. Administered Medications: 20:01 Drug: Tetanus-Diphtheria Toxoid Adult 0.5 ml {[employer] Inspector: [employer]. Exp: bm7 11/03/2023. Lot #: [id number]. } Route: IM; Site: right deltoid; 21:11 Follow up: Response: No adverse reaction bm7 21:10 Drug: Bactrim (trimethoprim-sulfamethoxazole) (160 mg-800 mg (DS) 1 tablet Route: PO; bm7 21:11 Follow up: Response: No adverse reaction bm7 Medication: 21:12 Vaccine Information Statement (VIS) provided today. Questions and/or concerns bm7 addressed. VIS edition date: February 24, 2022. Intake: 21:11 PO: 100ml (Water); Total: 100ml. bm7 Outcome: 19:20 Discharge ordered by . kdr 21:12 Discharged to home via wheelchair, with family. bm7 21:12 Condition: improved 21:12 Discharge instructions given to patient, family, Instructed on discharge instructions, follow up and referral plans. medication usage, Demonstrated understanding of instructions, follow-up care, medications, Prescriptions given X 1. 21:13 Patient left the ED. bm7 Signatures: Dispatcher [employer] EDWil Esquivel MD MD kdr Ballard, Brenda, RN RN Sadia [facility] Antoinette Singh, JEREMY RN 7
--- NOTE | 2022-02-24 19:20 | EDPHYS ---
Physician Documentation [facility] Name: Durga Sequeira Age: 81 yrs Sex: Male : 1940 Arrival Date: 02/24/2022 Time: 19:04 Bed 15 Private MD: ED Physician Wil Iraheta HPI: 02/24 19:13 This 81 yrs old Male presents to ER via EMS with complaints of fall, head injury, right kdr arm pain. 19:13 The patient states that he slipped and fell backwards on the floor. He denies LOC. No kdr other problems or concerns. Onset: The symptoms/episode began/occurred suddenly, just prior to arrival. Severity of symptoms: At their worst the symptoms were mild in the emergency department the symptoms are unchanged. The patient has not experienced similar symptoms in the past. The patient has not recently seen a physician. Historical: - Allergies: 19:06 PENICILLINS; bm7 - PMHx: 19:06 Hypertension; Dementia; bm7 - PSHx: 19:06 Unable to Obtain; bm7 - Immunization history:: Adult Immunizations unknown. - Social history:: Smoking status: Patient denies any tobacco usage or history of. - Immunization history: Last tetanus immunization: unknown. ROS: 19:13 Constitutional: Negative for fever, chills, and weight loss, Eyes: Negative for injury, kdr pain, redness, and discharge, Neck: Negative for injury, pain, and swelling, Cardiovascular: Negative for chest pain, palpitations, and edema, Respiratory: Negative for shortness of breath, cough, wheezing, and pleuritic chest pain, Abdomen/GI: Negative for abdominal pain, nausea, vomiting, diarrhea, and constipation, Back: Negative for injury and pain, : Negative for injury, bleeding, discharge, and swelling, MS/Extremity: Negative for injury and deformity, Neuro: Negative for headache, weakness, numbness, tingling, and seizure activity. Psych: Negative for depression, anxiety, suicide ideation, homicidal ideation, and hallucinations, Allergy/Immunology: Negative for hives, rash, and allergies, Endocrine: Negative for neck swelling, polydipsia, polyuria, polyphagia, and marked weight changes, Hematologic/Lymphatic: Negative for swollen nodes, abnormal bleeding, and unusual bruising. 19:13 Skin: Positive for abrasion(s), Abrasion/skin tear to right forearm and laceration to occiput. Exam: 19:13 Constitutional: This is a well developed, well nourished patient who is awake, alert, kdr and in no acute distress. Eyes: Pupils equal round and reactive to light, extra-ocular motions intact. Lids and lashes normal. Conjunctiva and sclera are non-icteric and not injected. Cornea within normal limits. Periorbital areas with no swelling, redness, or edema. ENT: Nares patent. No nasal discharge, no septal abnormalities noted. Tympanic membranes are normal and external auditory canals are clear. Oropharynx with no redness, swelling, or masses, exudates, or evidence of obstruction, uvula midline. Mucous membranes moist. Neck: Trachea midline, no thyromegaly or masses palpated, and no cervical lymphadenopathy. Supple, full range of motion without nuchal rigidity, or vertebral point tenderness. No Meningismus. Chest/axilla: Normal chest wall appearance and motion. Nontender with no deformity. No lesions are appreciated. Cardiovascular: Regular rate and rhythm with a normal S1 and S2. No gallops, murmurs, or rubs. Normal PMI, no JVD. No pulse deficits. Respiratory: Lungs have equal breath sounds bilaterally, clear to auscultation and percussion. No rales, rhonchi or wheezes noted. No increased work of breathing, no retractions or nasal flaring. Abdomen/GI: Soft, non-tender, with normal bowel sounds. No distension or tympany. No guarding or rebound. No evidence of tenderness throughout. Back: No spinal tenderness. No costovertebral tenderness. Full range of motion. MS/ Extremity: Pulses equal, no cyanosis. Neurovascular intact. Full, normal range of motion. Neuro: Awake and alert, GCS 15, oriented to person, place, time, and situation. Cranial nerves II-XII grossly intact. Motor strength 5/5 in all extremities. Sensory grossly intact. Cerebellar exam normal. Normal gait. Psych: Awake, alert, with orientation to person, place and time. Behavior, mood, and affect are within normal limits. 19:13 Head/face: Noted is contusion, a laceration(s), that is jagged. 19:13 Skin: injury, abrasion(s), moderate sized abrasion noted, contusion(s), that are superficial, of the left parietal area and right parietal area. Vital Signs: 19:04 BP 109 / 72; Pulse 70; Resp 16; Temp 98.0(TE); Pulse Ox 100% on R/A; Weight 74.84 kg bm7 (R); Height 6 ft. 1 in. (185.42 cm); Pain 0/10; 20:47 BP 128 / 79; Pulse 60; Resp 16 S; Pulse Ox 97% on R/A; bb 21:11 BP 143 / 80; Pulse 70; Resp 16; Temp 98.1(O); Pulse Ox 99% on R/A; Pain 0/10; bm7 19:04 Body Mass Index 21.77 (74.84 kg, 185.42 cm) bm7 Pelham Coma Score: 19:10 Eye Response: spontaneous(4). Verbal Response: confused(4). Motor Response: obeys bm7 commands(6). Total: 14. Trauma Score (Adult): 19:10 Eye Response: spontaneous(1); Verbal Response: confused(1); Motor Response: obeys bm7 commands(2); Systolic BP: > 89 mm Hg(4); Respiratory Rate: 10 to 29 per min(4); Holly Score: 14; Trauma Score: 12 MDM: 19:20 Patient medically screened. kdr 22:43 Data reviewed: vital signs, nurses notes. Counseling: I had a detailed discussion with kdr the patient and/or guardian regarding: the historical points, exam findings, and any diagnostic results supporting the discharge/admit diagnosis, lab results, radiology results, the need for outpatient follow up. 02/24 19:08 Order name: CT Head C Spine; Complete Time: 20:50 kdr Administered Medications: 20:01 Drug: Tetanus-Diphtheria Toxoid Adult 0.5 ml {Gig Tender: [employer]. Exp: bm7 11/03/2023. Lot #: [id number]. } Route: IM; Site: right deltoid; 21:11 Follow up: Response: No adverse reaction bm7 21:10 Drug: Bactrim (trimethoprim-sulfamethoxazole) (160 mg-800 mg (DS) 1 tablet Route: PO; bm7 21:11 Follow up: Response: No adverse reaction bm7 Disposition Summary: 02/24/22 19:20 Discharge Ordered Location: Home kdr Problem: new kdr Symptoms: have improved kdr Condition: Stable kdr Diagnosis - Unspecified injury of head, initial encounter kdr - Contusion of scalp kdr - Abrasion of scalp kdr - Laceration without foreign body of scalp kdr - Abrasion of right forearm kdr Followup: kdr - With: Private Physician - When: 2 - 3 days - Reason: If symptoms return, Further diagnostic work-up, Recheck today's complaints, Continuance of care, Re-evaluation by your physician Discharge Instructions: - Discharge Summary Sheet kdr - Head Injury, Adult, [id number] kdr - Sutures, Rowe, or Adhesive Wound Closure, [id number] kdr Forms: - Medication Reconciliation Form kdr - Thank You Letter kdr - Antibiotic Education kdr Prescriptions: - Bactrim DS 800-160 mg Oral Tablet - take 1 tablet by ORAL route every 12 hours for 3 days; 6 tablet; Refills: 0, kdr Product Selection Permitted Signatures: Dispatcher [employer] Wil Milligan MD MD kdr Antoinette Singh RN RN bm7
--- NOTE | 2022-02-24 19:47 | RAD REPORT ---
EXAM DESCRIPTION: CT - [id number] - 02/24/2022 7:27 pm CLINICAL HISTORY: Trauma, head and neck injury. head injury COMPARISON: Head C Spine Mpr Wo Con dated 09/09/2020 TECHNIQUE: Axial 5 mm thick images of the head were obtained. Axial 2 mm thick images of the cervical spine were obtained with sagittal and coronal reconstruction images generated and reviewed. All CT scans are performed using dose optimization technique as appropriate and may include automated exposure control or mA/KV adjustment according to patient size. FINDINGS: CT HEAD WITHOUT CONTRAST: No acute hemorrhage, hydrocephalus or extra-axial collection is identified.No areas of brain edema or midline shift. Chronic small vessel ischemic changes. The paranasal sinuses and mastoids are clear.The calvarium is intact. CT CERVICAL SPINE WITHOUT CONTRAST: No fracture or subluxation.No prevertebral soft tissues swelling is identified. Multilevel cervical s pondylosis with varying degrees of neural foraminal narrowing. Partial osseous fusion is present acro ss the C6-7 level likely related to degenerative changes. IMPRESSION: No acute intracranial or cervical spine findings.
[2022-02-24] MEDS ORDERED: TETANUS & DIPHTHERIA TOX,ADULT 0.5 ML VIAL ONE (20:07)
[2022-02-24] MEDS ORDERED: SMZ./TMP. 800/160 MG TABLET ONE (21:16)
[2022-02-24 22:49] VITALS: BP 143/80; TEMP 98.1; O2SAT 99
== END 2022-02-24 21:13 | disposition home or self-care (01) ==
LOC: ER 18:58
DX: S01.01XA Laceration without foreign body of scalp, initial encounter (principal); S50.811A Abrasion of right forearm, initial encounter; S09.90XA Unspecified injury of head, initial encounter; I10 Essential (primary) hypertension; F03.90 Unspecified dementia, unspecified severity, without behavioral disturbance, psychotic disturbance, mood disturbance, and anxiety; Z23 Encounter for immunization; Z88.0 Allergy status to penicillin
CPT/HCPCS: 70450; 72125; 90471; 90714; 99285

== ENCOUNTER 2023-02-13 07:05 | Emergency (ER) | payer OTHER ==
[2023-02-13] MEDS ORDERED: TDAP (DIPHTH,PERTUSS(ACELL),TET VAC) 0.5 ML VIAL IMVAC ONE (07:43)
[2023-02-13 07:46] LABS: Specific Gravity 1.015 (1.005-1.030); Urine Bilirubin NEGATIVE (Negative); Urine Blood Negative (Negative); Urine Clarity Clear (Clear); Urine Color Light-Yellow (Yellow); Urine Glucose NEGATIVE (Negative); Urine Protein NEGATIVE (Negative); Urine Urobilinogen Normal (Normal)
[2023-02-13] MEDS ORDERED: LIDOCAINE 2% W/EPI 1:200,000 MPF 20 ML VIAL IM ONE (07:53)
[2023-02-13] MEDS ORDERED: CEPHALEXIN 250 MG CAP ONE (08:15)
--- NOTE | 2023-02-13 08:55 | RAD REPORT ---
EXAM DESCRIPTION: CT - Head C Spine Cap Wo Con - 02/13/2023 8:22 am CLINICAL HISTORY: PAIN COMPARISON: Head C Spine Mpr Wo Con dated 02/24/2022 TECHNIQUE: Head and cervical spine CT images were obtained without IV contrast. Chest, abdomen, and pelvis CT images were obtained also without IV contrast. Multiplanar reformats were generated and rev iewed. All CT scans are performed using dose optimization technique as appropriate and may include automated exposure control or mA/KV adjustment according to patient size. FINDINGS: CT HEAD: No intracranial hemorrhage, mass effect, or edema. No evidence of acute territorial infarct. No midli ne shift or abnormal fluid collection. Moderate diffuse parenchymal volume loss, with stable proporti elana ventricular prominence, likely commensurate with age. Mild deep white matter hypodensities, non specific, but suggestive of chronic small vessel ischemic changes. Basal cisterns are patent. Mastoid aircells and paranasal sinuses are clear. Right scalp swelling. Skin enid in place. No acute skul l fracture. CT CERVICAL SPINE: No acute cervical spine fracture or subluxation. Vertebral body heights are well maintained. Facet charlotte ints are normal in alignment. No hyperattenuating canal hematoma. Multilevel degenerative changes. Pr evertebral and paraspinous soft tissues are unremarkable. CT CHEST: No pneumothorax, pulmonary contusion or pleural fluid collection. No mediastinal hematoma. Ectasia of the ascending thoracic aorta measuring 4.2 cm. Pulmonary arteries are unremarkable. No chest will ma ss or abnormal axillary finding. No displaced rib fracture or other significant bony finding. CT ABDOMEN/ PELVIS: No evidence of traumatic injury to solid abdominal viscera. Gallbladder and biliary tree are unremark able. No bowel injury or significant finding. Lobulated left renal cysts with thin calcified septa, t he largest at the lower pole measuring 4.7 x 3.6 cm headache smaller similar cyst at the midpole luis alberto uring 2 x 2.4 cm. No free air, free fluid or abnormal fat stranding. No urinary bladder abnormality. No significant bony finding. IMPRESSION: Right parietal scalp swelling. No other acute traumatic findings. Incidental findings including ectasia of the ascending thoracic aorta, and 2 left renal cysts with th in calcified septa, likely benign.
--- NOTE | 2023-02-13 09:01 | EDPHYS ---
Physician Documentation [facility] Name: Durga Sequeira Age: 82 yrs Sex: Male : 1940 Arrival Date: 02/13/2023 Time: 07:05 Bed 4 Private MD: ED Physician Shiva Ahuja HPI: 02/13 07:52 This 82 yrs old Male presents to ER via EMS with complaints of Fall Injury. edna 07:52 Details of fall: The patient fell from an upright position, while walking. Onset: The edna symptoms/episode began/occurred just prior to arrival. Associated injuries: The patient sustained injury to the head. Severity of symptoms: At their worst the symptoms were mild, in the emergency department the symptoms have resolved. The patient has experienced similar episodes in the past, several times. Historical: - Allergies: 07:10 PENICILLINS; kd3 - PMHx: 07:10 Dementia; Hypertension; prostate pills; kd3 - Immunization history:: Adult Immunizations up to date. - Social history:: Smoking status: Patient reports the use of cigarette tobacco products, cigars. ROS: 07:54 Constitutional: Negative for fever, chills, and weight loss, Eyes: Negative for injury, edna pain, redness, and discharge, ENT: Negative for injury, pain, and discharge, Neck: Negative for injury, pain, and swelling, Cardiovascular: Negative for chest pain, palpitations, and edema, Respiratory: Negative for shortness of breath, cough, wheezing, and pleuritic chest pain, Abdomen/GI: Negative for abdominal pain, nausea, vomiting, diarrhea, and constipation, Back: Negative for injury and pain, : Negative for injury, bleeding, discharge, and swelling, MS/Extremity: Negative for injury and deformity, Skin: Negative for injury, rash, and discoloration, Psych: Negative for depression, anxiety, suicide ideation, homicidal ideation, and hallucinations, Allergy/Immunology: Negative for hives, rash, and allergies, Endocrine: Negative for neck swelling, polydipsia, polyuria, polyphagia, and marked weight changes, Hematologic/Lymphatic: Negative for swollen nodes, abnormal bleeding, and unusual bruising. 07:54 Skin: Positive for laceration(s). 07:54 Neuro: Positive for headache. Exam: 07:54 Constitutional: This is a well developed, well nourished patient who is awake, alert, edna and in no acute distress. Eyes: Pupils equal round and reactive to light, extra-ocular motions intact. Lids and lashes normal. Conjunctiva and sclera are non-icteric and not injected. Cornea within normal limits. Periorbital areas with no swelling, redness, or edema. ENT: Nares patent. No nasal discharge, no septal abnormalities noted. Tympanic membranes are normal and external auditory canals are clear. Oropharynx with no redness, swelling, or masses, exudates, or evidence of obstruction, uvula midline. Mucous membranes moist. Neck: Trachea midline, no thyromegaly or masses palpated, and no cervical lymphadenopathy. Supple, full range of motion without nuchal rigidity, or vertebral point tenderness. No Meningismus. Chest/axilla: Normal chest wall appearance and motion. Nontender with no deformity. No lesions are appreciated. Cardiovascular: Regular rate and rhythm with a normal S1 and S2. No gallops, murmurs, or rubs. Normal PMI, no JVD. No pulse deficits. Respiratory: Lungs have equal breath sounds bilaterally, clear to auscultation and percussion. No rales, rhonchi or wheezes noted. No increased work of breathing, no retractions or nasal flaring. Abdomen/GI: Soft, non-tender, with normal bowel sounds. No distension or tympany. No guarding or rebound. No evidence of tenderness throughout. Back: No spinal tenderness. No costovertebral tenderness. Full range of motion. Skin: Warm, dry with normal turgor. Normal color with no rashes, no lesions, and no evidence of cellulitis. MS/ Extremity: Pulses equal, no cyanosis. Neurovascular intact. Full, normal range of motion. Neuro: Awake and alert, GCS 15, oriented to person, place, time, and situation. Cranial nerves II-XII grossly intact. Motor strength 5/5 in all extremities. Sensory grossly intact. Cerebellar exam normal. Normal gait. Psych: Awake, alert, with orientation to person, place and time. Behavior, mood, and affect are within normal limits. 07:54 Skin: injury, contusion(s), laceration(s), the wound is approximately 6 cm(s), with a depth of .25 cm(s), of the face. Vital Signs: 07:07 Weight 60.78 kg; Height 6 ft. 1 in. ; kd3 07:11 BP 154 / 78; Pulse 72; Resp 18; Temp 97.5(TE); Pulse Ox 96% ; kd3 08:40 BP 165 / 100; Pulse 83; Pulse Ox 98% on R/A; ap3 07:07 Body Mass Index 17.68 (60.78 kg, 185.42 cm) kd3 Holly Coma Score: 07:55 Eye Response: spontaneous(4). Motor Response: obeys commands(6). Verbal Response: edna oriented(5). Total: 15. Laceration: 08:24 Wound Repair of 6cm ( 2.4in ) subcutaneous laceration to right frontal area and right edna temporal area. Irregularly shaped.. Skin/tissue flap noted.. Distal neuro/vascular/tendon intact. Anesthesia: Local anesthetic administered with 10 mls of 1% lidocaine w/ Epi. Skin closed with 8 enid Timbo using staple gun. Dressed with non-adherent dressing. Patient tolerated well. MDM: 07:10 Patient medically screened. edna 07:55 Differential diagnosis: cerebral vascular accident, intracerebral hemorrhage, edna subarachnoid bleed, subdural hematoma, traumatic injuries. Differential diagnosis: abrasion, closed head injury, contusion, fracture, laceration, multiple trauma, sprain, strain. Data reviewed: vital signs, nurses notes, lab test result(s), radiologic studies, CT scan. Consideration of Admission/Observation Escalation of care including admission/observation considered. I considered the following discharge prescriptions or medication management in the emergency department Medications were administered in the Emergency Department. See MAR. Test considered but Not performed: Labs: no labs. Historians other than the Patient: ems. Care significantly affected by the following chronic conditions: Hypertension, dementia. Counseling: I had a detailed discussion with the patient and/or guardian regarding the historical points, exam findings, and any diagnostic results supporting the discharge/admit diagnosis, radiology results, the need for outpatient follow up, for definitive care, 02/13 07:25 Order name: Urinalysis w/ reflexes; Complete Time: 07:59 [facility] 02/13 07:25 Order name: CT Traumagram (Head C Spine CAP wo con) [facility] 02/13 07:25 Order name: Dressing - Wound; Complete Time: 07:43 [facility] 02/13 07:25 Order name: Gloves, Sterile; Complete Time: 07:43 [facility] 02/13 07:25 Order name: Setup Suture Tray; Complete Time: 07:29 [facility] 02/13 08:00 Order name: Wound Care; Complete Time: 08:21 [facility] Administered Medications: 07:38 Drug: Tetanus Toxoid,Adsorbed IM 0.5 ml {Armored Vehicle Officer: [employer] Exp: ap3 07/17/2023. Lot #: [id number]. } Route: IM; Site: left deltoid; 07:54 Follow up: Response: (VIS) Vaccine information sheet provided today. Questions and/or ap3 concerns addressed. VIS edition date: Feb 02, 2021.; No adverse reaction 08:05 Drug: Cephalexin PO 500 mg Route: PO; ld1 09:16 Follow up: Response: No adverse reaction ap3 Disposition Summary: 02/13/23 09:00 Discharge Ordered Location: Home edna Problem: new edna Symptoms: have improved edna Condition: Stable edna Diagnosis - Fall on same level, unspecified edan - Unspecified injury of head, initial encounter edna - Laceration without foreign body of other part of head - 6 cm scalp flap laceration edna Followup: edna - With: Private Physician - When: 2 - 3 days - Reason: Recheck today's complaints, Continuance of care, Re-evaluation by your physician Followup: edna - With: - When: 5 - 6 days - Reason: Recheck today's complaints, Re-evaluation by your physician Discharge Instructions: - Discharge Summary Sheet edna - Head Injury, Adult edna - Fall Prevention in the Home, Adult edna - Laceration Care, Adult edna - Laceration Care, Adult, [id number] edna - Fall Prevention in the Home, Adult, [id number] [facility] Forms: - Medication Reconciliation Form [facility] - Thank You Letter [facility] - Antibiotic Education [facility] - Prescription Opioid Use [facility] - Patient Portal Instructions [facility] - Leadership Thank You Letter [facility] Prescriptions: - Cephalexin 500 mg Oral Capsule - take 1 capsule by ORAL route every 6 hours for 7 days; 28 capsule; Refills: 0, edna Product Selection Permitted Signatures: Dispatcher [employer] Shiva Dunn MD MD cha Prokisch, Amanda RN RN ap3 Maddy White RN RN ld1 Avis Andre RN RN kd3
--- NOTE | 2023-02-13 09:01 | ER ---
Nurse's Notes [facility] Name: Durga Sequeira Age: 82 yrs Sex: Male : 1940 Arrival Date: 02/13/2023 Time: 07:05 Bed 4 Private MD: Diagnosis: Fall on same level, unspecified;Unspecified injury of head, initial encounter;Laceration without foreign body of other part of head-6 cm scalp flap laceration Presentation: 02/13 07:07 Chief complaint: EMS states: PT fell from a standing position and hit the right side of kd3 his head. He has a approximately 2 inch lac to the right side. Pt is not on blood thinners and has negative LOC. Coronavirus screen: Vaccine status: Patient reports being unvaccinated. Ebola Screen: No symptoms or risks identified at this time. Initial Sepsis Screen: Does the patient meet any 2 criteria? No. Patient's initial sepsis screen is negative. Does the patient have a suspected source of infection? No. Patient's initial sepsis screen is negative. Risk Assessment: Do you want to hurt yourself or someone else? Patient reports no desire to harm self or others. Onset of symptoms was February 13, 2023. 07:07 Method Of Arrival: EMS: [facility] kd3 07:07 Acuity: LATANYA 3 kd3 Triage Assessment: 07:10 General: Appears in no apparent distress. Behavior is anxious, uncooperative. Pain: kd3 Denies pain. Historical: - Allergies: 07:10 PENICILLINS; kd3 - PMHx: 07:10 Dementia; Hypertension; prostate pills; kd3 - Immunization history:: Adult Immunizations up to date. - Social history:: Smoking status: Patient reports the use of cigarette tobacco products, cigars. Screenin:30 Abuse screen: Denies threats or abuse. Nutritional screening: No deficits noted. ap3 Tuberculosis screening: No symptoms or risk factors identified. 09:16 [facility] ED Fall Risk Assessment (Adult) History of falling in the last 3 months, ap3 including since admission Yes- fall prone (multiple falls) (3 pts) Confusion or Disorientation Yes (5 pts) Intoxicated or Sedated No (0 pts) Impaired Gait Yes (1 pt) Mobility Assist Device Used Yes (1 pt) Altered Elimination No (0 pt). Vital Signs: 07:07 Weight 60.78 kg; Height 6 ft. 1 in. ; kd3 07:11 BP 154 / 78; Pulse 72; Resp 18; Temp 97.5(TE); Pulse Ox 96% ; kd3 08:40 BP 165 / 100; Pulse 83; Pulse Ox 98% on R/A; ap3 07:07 Body Mass Index 17.68 (60.78 kg, 185.42 cm) kd3 Holly Coma Score: 07:55 Eye Response: spontaneous(4). Motor Response: obeys commands(6). Verbal Response: edna oriented(5). Total: 15. ED Course: 07:06 Patient arrived in ED. kd3 07:10 Triage completed. kd3 07:10 Shiva Ahuja MD is Attending Physician. edna 07:10 Arm band placed on right wrist. kd3 07:29 Heather Fairchild, JEREMY is Primary Nurse. ap3 07:30 Patient has correct armband on for positive identification. Bed in low position. Call ap3 light in reach. Side rails up X2. Pulse ox on. NIBP on. 07:43 Urinalysis w/ reflexes Sent. ld1 08:24 CT Traumagram (Head C Spine CAP wo con) In Process Unspecified. EDMS 08:59 Scooby Dill MD is Referral Physician. edna 09:08 Patient did not have IV access during this emergency room visit. ap3 09:15 Assist provider with laceration repair on right side of the back of head using enid. ap3 Set up tray. Performed by Shiva Ahuja MD Patient tolerated well. 09:16 Provided Education on: wound care. ap3 Administered Medications: 07:38 Drug: Tetanus Toxoid,Adsorbed IM 0.5 ml {Produce Production Team Member: [employer] Exp: ap3 07/17/2023. Lot #: [id number]. } Route: IM; Site: left deltoid; 07:54 Follow up: Response: (VIS) Vaccine information sheet provided today. Questions and/or ap3 concerns addressed. VIS edition date: Feb 02, 2021.; No adverse reaction 08:05 Drug: Cephalexin PO 500 mg Route: PO; ld1 09:16 Follow up: Response: No adverse reaction ap3 Medication: 07:40 Vaccine Information Statement (VIS) provided today. Questions and/or concerns ap3 addressed. VIS edition date: February 02, 2021. Outcome: 09:00 Discharge ordered by MD. bishop 09:15 Discharged to home with crutches, with family. ap3 09:15 Condition: good 09:15 Discharge instructions given to patient, family, Instructed on discharge instructions, follow up and referral plans. medication usage, Demonstrated understanding of instructions, follow-up care, medications, Prescriptions given X 1. 09:16 Patient left the ED. ap3 Signatures: Dispatcher [employer] EDPA Shiva Ahuja MD MD cha Prokisch, Amanda, RN RN ap3 Maddy White RN RN ld1 Avis Andre, RN RN kd3
[2023-02-13 09:21] VITALS: TEMP 97.5
[2023-02-13 09:22] VITALS: BP 165/100; O2SAT 98
== END 2023-02-13 09:16 | disposition home or self-care (01) ==
LOC: ER 07:05
PROC: 0HQ0XZZ Repair Scalp Skin, External Approach (ICD-10-PCS; principal; 2023-02-13)
DX: S01.01XA Laceration without foreign body of scalp, initial encounter (principal); W18.30XA Fall on same level, unspecified, initial encounter; F03.90 Unspecified dementia, unspecified severity, without behavioral disturbance, psychotic disturbance, mood disturbance, and anxiety; I10 Essential (primary) hypertension; Z23 Encounter for immunization; Z72.0 Tobacco use; Z88.0 Allergy status to penicillin
CPT/HCPCS: 70450; 71250; 72125; 81003; 90471; 99285

== ENCOUNTER 2023-02-20 14:30 | Emergency (ER) | payer OTHER ==
[2023-02-20 14:58] LABS: Hematocrit 34.9 % (39.6-49.0); Lymphocytes % 35.4 % (15.3-44.8); MCV 92.4 fL (80-100); MPV 9.8 fL (7.6-11.3); Platelets 119 thou/uL (152-406); RBC Red Blood Cell Count 3.78 M/uL (4.33-5.43)
--- NOTE | 2023-02-20 15:06 | RAD REPORT ---
EXAM DESCRIPTION: CT - Head C Spine Mpr Wo Con - 02/20/2023 2:50 pm CLINICAL HISTORY: Head and neck injury status post fall. Head and neck pain COMPARISON: 2021 TECHNIQUE: Computed axial tomography of the head and cervical spine was obtained. Sagittal and coronal reconstruction was performed. All CT scans are performed using dose optimization technique as appropriate and may include automated exposure control or mA/KV adjustment according to patient size. FINDINGS: Right scalp laceration. An intracranial bleed is not seen. The ventricles are normal in caliber. Mild to moderate cerebral at rophy No significant hypodensity within the brain. An extra-axial fluid collection is not noted. Fluid within the visualized sinuses and mastoids is not seen A cervical fracture is not visualized. No dislocation is noted. IMPRESSION: No acute intracranial abnormality is seen. A cervical fracture is not visualized. If the patient continues to have symptoms to suggest intracranial /spinal cord pathology then MRI wou ld be recommended
[2023-02-20 15:11] LABS: Albumin 3.1 g/dL (3.4-5.0); Bilirubin Total 0.5 mg/dL (0.2-1.0); Magnesium 2.6 mg/dL (1.6-2.4); Potassium 4.1 mEq/L (3.5-5.1); Troponin High Sensitivity 4.8 pg/mL (<58.9)
--- NOTE | 2023-02-20 15:58 | ER ---
Nurse's Notes [facility] Name: Durga Sequeira Age: 82 yrs Sex: Male : 1940 Arrival Date: 02/20/2023 Time: 14:30 Bed 4 Private MD: Diagnosis: Fall on same level, unspecified;Encounter for staple removal Presentation: 02/20 14:37 Chief complaint: EMS states: "Pt found in apartment parking lot with unknown down time. mb9 Pt alert and oriented. BGL 122. 20 g to right FA.". Coronavirus screen: Vaccine status: Patient reports receiving the 2nd dose of the covid vaccine. Ebola Screen: No symptoms or risks identified at this time. Initial Sepsis Screen: Does the patient meet any 2 criteria? No. Patient's initial sepsis screen is negative. Does the patient have a suspected source of infection? No. Patient's initial sepsis screen is negative. Risk Assessment: Do you want to hurt yourself or someone else? Patient reports no desire to harm self or others. Onset of symptoms was February 20, 2023. 14:37 Method Of Arrival: EMS: [facility] mb9 14:37 Acuity: LATANYA 3 mb9 Triage Assessment: 14:40 General: Appears uncomfortable, unkempt, Behavior is uncooperative. Pain: Denies pain. mb9 EENT: No deficits noted. Neuro: Blanco Agitation-Sedation Scale (RASS): 0 - Alert and Calm Level of Consciousness is awake, alert, Oriented to person, place. Cardiovascular:. Respiratory: Airway is patent Respiratory effort is even, unlabored, Respiratory pattern is regular, symmetrical. Derm: enid noted to right head. Musculoskeletal: Range of motion: intact in all extremities. Historical: - Allergies: 14:40 PENICILLINS; mb9 - PMHx: 14:40 Dementia; Hypertension; prostate pills; mb9 - Immunization history:: Adult Immunizations up to date. - Social history:: Smoking status: Patient reports the use of cigarette tobacco products, cigars. - Family history:: not pertinent. Screenin:41 [facility] ED Fall Risk Assessment (Adult) History of falling in the last 3 months, mb9 including since admission Yes- fall prone (multiple falls) (3 pts) Confusion or Disorientation Yes (5 pts) Intoxicated or Sedated No (0 pts) Impaired Gait Yes (1 pt) Mobility Assist Device Used Yes (1 pt) Altered Elimination Yes (1 pt) Score/Fall Risk Level 3 or more points = High Risk Oriented to surroundings, Maintained a safe environment, Educated pt \\T\\ family on fall prevention, incl call for assistance when getting out of bed. Abuse screen: Denies threats or abuse. Nutritional screening: No deficits noted. Tuberculosis screening: No symptoms or risk factors identified. Assessment: 15:06 General: Appears unkempt, Behavior is restless, uncooperative. Pain: Denies pain. iw Neuro: Level of Consciousness is awake, alert, Oriented to person, Moves all extremities. Cardiovascular: Patient's skin is warm and dry. Respiratory: Respiratory effort is even, unlabored, Respiratory pattern is regular, symmetrical. Derm: Skin is fragile, is thin. Derm: enid in place to right side top of head, removed by Dr. Landeros. Musculoskeletal: Range of motion: intact in all extremities. 15:31 Reassessment: pt son and daughter at bedside. mb9 Vital Signs: 14:37 BP 120 / 78; Pulse 78; Resp 18; Temp 98.4; Pulse Ox 97% on R/A; Weight 77.11 kg; Height mb9 5 ft. 11 in. ; Pain 0/10; 15:31 BP 148 / 77; Pulse 70; Resp 18; Pulse Ox 100% on R/A; mb9 14:37 Body Mass Index 23.71 (77.11 kg, 180.34 cm) mb9 14:37 Pain Scale: Adult mb9 ED Course: 14:32 Patient arrived in ED. bp 14:32 Viral Landeros MD is Attending Physician. rt 14:36 Arm band placed on. mb9 14:39 Triage completed. mb9 14:41 Placed in gown. Bed in low position. Call light in reach. Side rails up X 1. Client mb9 placed on continuous cardiac and pulse oximetry monitoring. NIBP monitoring applied. front desk monitor on. 14:42 No provider procedures requiring assistance completed. Maintain EMS IV. Dressing mb9 intact. Good blood return noted. Site clean \\T\\ dry. Gauge \\T\\ site: 20 g right FA. 14:51 CT Head C Spine In Process Unspecified. EDMS 14:53 Karime Recinos, RN is Primary Nurse. iw 15:30 Provided Education on: fall precautions . iw 16:25 IV discontinued, intact, bleeding controlled, No redness/swelling at site. Pressure iw dressing applied. Administered Medications: 14:53 Drug: NS 0.9% IV 1000 ml Route: IV; Rate: 1 bolus; Site: right wrist; iw 16:00 Follow up: IV Status: Completed infusion iw Medication: 16:00 VIS not applicable for this client. iw Outcome: 15:58 Discharge ordered by MD. rt 16:28 Discharged to home via wheelchair, with family. iw 16:28 Condition: good 16:28 Discharge instructions given to family, Instructed on discharge instructions, follow up and referral plans. Demonstrated understanding of instructions, follow-up care. 16:29 Patient left the ED. iw Signatures: Dispatcher [employer] Karime Christianson RN RN iw Peltier, Brian, RN RN bp Breneman, Mary Beth RN RN mb9 Viral Landeros MD MD rt
--- NOTE | 2023-02-20 15:58 | EDPHYS ---
Physician Documentation [facility] Name: Durga Sequeira Age: 82 yrs Sex: Male : 1940 Arrival Date: 02/20/2023 Time: 14:30 Bed 4 Private MD: ED Physician Viral Landeros HPI: 02/20 17:30 This 82 yrs old Male presents to ER via EMS with complaints of Fall. rt 17:30 Patient with history of multiple falls presents to the ED with another reported fall, rt reportedly being found outside in the heat on the ground. EMS brought the patient for further eval. 1 week ago, patient was similar presentation when she had a scalp laceration which was repaired with enid, no lacerations today. Patient denies any complaints stating that he wishes to go home. Denies other acute complaints at this time. Symptoms are moderate in severity, no other aggravating relieving factors. History is limited by patient with advanced dementia.. Historical: - Allergies: 14:40 PENICILLINS; mb9 - PMHx: 14:40 Dementia; Hypertension; prostate pills; mb9 - Immunization history:: Adult Immunizations up to date. - Social history:: Smoking status: Patient reports the use of cigarette tobacco products, cigars. - Family history:: not pertinent. ROS: 17:30 Unable to obtain ROS due to baseline dementia. rt Exam: 17:31 Constitutional: This is a well developed, well nourished patient who is awake, alert, rt and in no acute distress. Chest/axilla: Normal chest wall appearance and motion. Nontender with no deformity. No lesions are appreciated. Cardiovascular: Regular rate and rhythm with a normal S1 and S2. No gallops, murmurs, or rubs. Normal PMI, no JVD. No pulse deficits. Respiratory: Lungs have equal breath sounds bilaterally, clear to auscultation and percussion. No rales, rhonchi or wheezes noted. No increased work of breathing, no retractions or nasal flaring. Abdomen/GI: Soft, non-tender, with normal bowel sounds. No distension or tympany. No guarding or rebound. No evidence of tenderness throughout. Skin: Warm, dry with normal turgor. Normal color with no rashes, no lesions, and no evidence of cellulitis. MS/ Extremity: Pulses equal, no cyanosis. Neurovascular intact. Full, normal range of motion. 17:31 Head/face: Well-healed wound to the scalp with [address], no surrounding erythema, discharge. 17:31 ECG was reviewed by the Attending Physician. rt Vital Signs: 14:37 BP 120 / 78; Pulse 78; Resp 18; Temp 98.4; Pulse Ox 97% on R/A; Weight 77.11 kg; Height mb9 5 ft. 11 in. ; Pain 0/10; 15:31 BP 148 / 77; Pulse 70; Resp 18; Pulse Ox 100% on R/A; mb9 14:37 Body Mass Index 23.71 (77.11 kg, 180.34 cm) mb9 14:37 Pain Scale: Adult mb9 Procedures: 17:31 Suture/Staple removal: Removed 8 enid, from scalp, site appears well healed, dressed rt with Patient tolerated well. MDM: 14:32 Patient medically screened. rt 17:31 Differential Diagnosis Intracranial hemorrhage, electrolyte disturbance, anemia. Data rt reviewed: vital signs, nurses notes, lab test result(s), EKG, radiologic studies. 17:31 Independent interpretation of the following test(s) in the Emergency Department CT rt Scan: My interpretation is No hemorrhage seen on interpretation of the CT scan images. Historians other than the Patient: Daughter/Son: States the patient is at baseline.. Care significantly affected by the following chronic conditions: Dementia. Counseling: I had a detailed discussion with the patient and/or guardian regarding the historical points, exam findings, and any diagnostic results supporting the discharge/admit diagnosis, lab results, radiology results, the need for outpatient follow up, to return to the emergency department if symptoms worsen or persist or if there are any questions or concerns that arise at home. 02/20 14:35 Order name: CBC with Diff; Complete Time: 15:12 rt 02/20 14:35 Order name: CMP; Complete Time: 15:12 rt 02/20 14:35 Order name: ETOH Level; Complete Time: 15:21 rt 02/20 14:35 Order name: CPK; Complete Time: 15:12 rt 02/20 14:35 Order name: Magnesium; Complete Time: 15:12 rt 02/20 14:35 Order name: Troponin High Sensitivity; Complete Time: 15:12 rt 02/20 14:35 Order name: CT Head C Spine; Complete Time: 15:12 rt 02/20 14:35 Order name: EKG; Complete Time: 14:36 rt 02/20 14:35 Order name: EKG - Nurse/Tech; Complete Time: 15:30 rt EC:31 Rate is 71 beats/min. Rhythm is regular, Normal Sinus Rhythm with No ectopy. QRS [place] rt is Normal. NC interval is normal. QRS interval is normal. QT interval is normal. No Q waves. Clinical impression: NSR w/ Non-specific ST/T Changes. Interpreted by me. Administered Medications: 14:53 Drug: NS 0.9% IV 1000 ml Route: IV; Rate: 1 bolus; Site: right wrist; iw 16:00 Follow up: IV Status: Completed infusion iw Disposition Summary: 02/20/23 15:58 Discharge Ordered Location: Home rt Problem: an ongoing problem rt Symptoms: have improved rt Condition: Stable rt Diagnosis - Fall on same level, unspecified rt - Encounter for staple removal rt Followup: rt - With: Private Physician - When: 2 - 3 days - Reason: Discharge Instructions: - Discharge Summary Sheet rt - Fall Prevention in the Home, Adult rt - Suture Removal, Care After rt Forms: - Medication Reconciliation Form rt - Thank You Letter rt - Antibiotic Education rt - Prescription Opioid Use rt - Patient Portal Instructions rt - Leadership Thank You Letter rt Signatures: Dispatcher [employer] Karime Christianson, RN Beverly Pond RN RN mb9 Viral Landeros MD MD rt
[2023-02-20 16:34] VITALS: TEMP 98.4
[2023-02-20 16:35] VITALS: BP 148/77; O2SAT 100
--- NOTE | 2023-02-23 15:10 | EKG ---
Test Date: 2023-02-20 Test Time: 15:25:20 [employer] Architect: ORQUIDEA MEASUREMENT RESULTS: Intervals: Rate: 71 MT: 174 QRSD: 74 QT: 394 QTc: 428 [place]: P: 94 MT: 174 QRS: 68 T: 76 INTERPRETIVE STATEMENTS: Normal sinus rhythm Septal infarct, age undetermined Inferior injury pattern ACUTE OH / STEMI Consider right ventricular involvement in acute inferior infarct Abnormal ECG Compared to ECG 12/23/2021 15:21:18 Myocardial infarct finding now present First degree AV block no longer present Electronically Signed On 02-23-23 15:07:32 CDT by Avery Mclaughlin
== END 2023-02-20 16:29 | disposition home or self-care (01) ==
LOC: ER 14:30
DX: Z48.02 Encounter for removal of sutures (principal); W18.30XA Fall on same level, unspecified, initial encounter; F03.90 Unspecified dementia, unspecified severity, without behavioral disturbance, psychotic disturbance, mood disturbance, and anxiety; I10 Essential (primary) hypertension; Z88.0 Allergy status to penicillin
CPT/HCPCS: 36415; 70450; 72125; 80053; 82077; 82550; 83735; 84484; 85025; 93005; 96360; 99285

== ENCOUNTER 2023-04-19 11:49 | Emergency (ER) | payer OTHER ==
--- NOTE | 2023-04-19 13:42 | RAD REPORT ---
EXAM DESCRIPTION: CT - Head C Spine Cap Wo Con - 04/19/2023 1:15 pm CLINICAL HISTORY: fall from chair COMPARISON: Head C Spine Cap Wo Con dated 03/07/2023; Head C Spine Cap Wo Con dated 02/13/2023 TECHNIQUE: Head and cervical spine CT images were obtained without IV contrast. Chest, abdomen, and pelvis CT images were obtained also without IV contrast. . Multiplanar reformats were generated and r eviewed. All CT scans are performed using dose optimization technique as appropriate and may include automated exposure control or mA/KV adjustment according to patient size. FINDINGS: CT HEAD: No intracranial hemorrhage, mass effect, or edema. Small focus of hypoattenuation in the right superi or cerebellum is stable, may represent a small remote infarct. No evidence of acute territorial infar ct. No midline shift or abnormal fluid collection. The ventricles are stable in caliber with moderate diffuse parenchymal volume loss. Stable mild periventricular and deep white matter hypodensities, no nspecific, but most suggestive of chronic small vessel ischemic changes. Basal cisterns are patent. M astoid aircells and paranasal sinuses are clear. No acute skull fracture. CT CERVICAL SPINE: No acute cervical spine fracture or subluxation. Vertebral body heights are well maintained. Facet [place] ints are normal in alignment. No hyperattenuating canal hematoma. Multilevel degenerative changes wit h up to moderate disc height loss most pronounced at C5-6. Ankylosis across the C6-7 disc space. Vari able degrees of neural foraminal narrowing secondary to facet and uncovertebral joint spurring, most pronounced at C6-7 on the left. Prevertebral and paraspinous soft tissues are unremarkable. CT CHEST: No pneumothorax, pulmonary contusion or pleural fluid collection. Ascending aorta is tortuous, and me asures 4.1 cm in caliber, near the upper limit of normal. No mediastinal hematoma and the aorta and p ulmonary arteries are unremarkable. No chest will mass or abnormal axillary finding. No displaced rib fracture or other significant bony finding. CT ABDOMEN/ PELVIS: No evidence of traumatic injury to solid abdominal viscera. Gallbladder and biliary tree are unremark able. No bowel injury or significant finding. Stable exophytic renal cortical cysts on the left, with thin calcified septations, the largest measuring 5.1 cm at the left lower pole. Few punctate splenic granulomas. No free air, free fluid or abnormal fat stranding. No urinary bladder abnormality. Mildly displaced fractures of the right L1 transverse process, right posterior tenth through twelfth ribs. Deformity along the body of the sternum appears stable without acute fractures. IMPRESSION: Mildly displaced fractures of the right L1 transverse process, and right posterior tenth -twelfth ribs. No other acute traumatic findings. Stable chronic and incidental findings as above
[2023-04-19 13:44] LABS: Absolute Lymphocytes (CBC) 0.9 K/uL (0.7-4.9); Hematocrit 37.4 % (39.6-49.0); Lymphocytes % 26.1 % (15.3-44.8); MCV 92.3 fL (80-100); MPV 8.5 fL (7.6-11.3); Platelets 120 thou/uL (152-406); RBC Red Blood Cell Count 4.05 M/uL (4.33-5.43)
[2023-04-19 14:04] LABS: Albumin 3.3 g/dL (3.4-5.0); Bilirubin Total 0.9 mg/dL (0.2-1.0); Potassium 4.6 mEq/L (3.5-5.1); Protein, Total 6.7 g/dL (6.4-8.2)
[2023-04-19 14:19] LABS: Blood Morphology Comment NOT SEEN (NOT SEEN); Platelet Estimate DECR; White Blood Cell Scan OK (OK)
--- NOTE | 2023-04-19 14:45 | ER ---
Nurse's Notes [facility] Name: Durga Sequeira Age: 82 yrs Sex: Male : 1940 Arrival Date: 04/19/2023 Time: 11:49 Bed 19 Private MD: Diagnosis: Fall from non-moving wheelchair;Fall on same level, unspecified;L1 spinous process fracture minimally displaced.;Multiple fractures of ribs, right side, initial encounter for closed fracture Presentation: 04/19 11:51 Chief complaint: EMS states: fell out of bed onto floor when attempting to stand up, eh3 denies LOC, daughter found him on floor this morning. Small abrasions to right forehead and right lower lip, no bleeding noted. Daughter states pt has been out of propranolol and unknown tremor home medications for unknown amount of time. Ebola Screen: No symptoms or risks identified at this time. Initial Sepsis Screen: Does the patient meet any 2 criteria? No. Patient's initial sepsis screen is negative. Does the patient have a suspected source of infection? No. Patient's initial sepsis screen is negative. Risk Assessment: Do you want to hurt yourself or someone else? Patient reports no desire to harm self or others. Onset of symptoms was April 19, 2023. 11:51 Method Of Arrival: EMS: [place] [id number] 11:51 Acuity: LATANYA 3 eh3 Triage Assessment: 11:54 General: Appears in no apparent distress. comfortable, Behavior is agitated, Smells of eh3 urine. Pain: Denies pain. Neuro: Level of Consciousness is awake, alert, obeys commands, Oriented to person, place, time, situation. Cardiovascular: Capillary refill < 3 seconds Patient's skin is warm and dry. Respiratory: Airway is patent Respiratory effort is even, unlabored, Respiratory pattern is regular, symmetrical. GI: Abdomen is round non-distended. Derm: Skin is pink, warm \T\ dry. Musculoskeletal: Circulation, motion, and sensation intact. Injury Description: Abrasion sustained to forehead and mouth. Historical: - Allergies: 11:54 PENICILLINS; eh3 - Home Meds: 11:54 Propranolol Oral [Active]; tamsulosin oral [Active]; finasteride oral [Active]; eh3 - PMHx: 11:54 Dementia; Hypertension; BPH; eh3 - Immunization history:: Adult Immunizations unknown. - Social history:: Smoking status: unknown. Screenin:58 [facility] ED Fall Risk Assessment (Adult) Score/Fall Risk Level 3 or more points = High eh3 Risk Oriented to surroundings, Maintained a safe environment, Educated pt \T\ family on fall prevention, incl call for assistance when getting out of bed, Assessed \T\ reinforced patient's understanding of fall precautions, Provided non-skid footwear, Hourly rounding (assess needs \T\ fall precautionary measures) done, Used ambulatory aids as needed (educated on \T\ assisted with), Utilized family, sitter, or virtual caustics loader as indicated. Abuse screen: Denies threats or abuse. Denies injuries from another. Nutritional screening: No deficits noted. Tuberculosis screening: No symptoms or risk factors identified. Assessment: 11:57 Reassessment: No changes from previously documented assessment. See triage assessment. eh3 12:45 Reassessment: Patient and/or family updated on plan of care and expected duration. Pain eh3 level reassessed. Patient is alert, oriented x 3, equal unlabored respirations, skin warm/dry/pink. 13:45 Reassessment: Patient and/or family updated on plan of care and expected duration. Pain eh3 level reassessed. Patient is alert, oriented x 3, equal unlabored respirations, skin warm/dry/pink. 14:45 Reassessment: Patient and/or family updated on plan of care and expected duration. Pain eh3 level reassessed. Patient is alert, oriented x 3, equal unlabored respirations, skin warm/dry/pink. Vital Signs: 11:51 BP 156 / 74; Pulse 86; Resp 18; Temp 98.7(O); Pulse Ox 100% ; Weight 74.84 kg; Height 6 eh3 ft. 1 in. ; Pain 0/10; 12:45 BP 147 / 98; Pulse 80; Resp 16; Pulse Ox 99% on R/A; eh3 13:45 BP 164 / 108; Pulse 97; Resp 16; Pulse Ox 99% on R/A; eh3 14:45 BP 134 / 116; Pulse 100; Resp 18; Pulse Ox 98% on R/A; eh3 11:51 Body Mass Index 21.77 (74.84 kg, 185.42 cm) eh3 11:51 Pain Scale: Adult eh3 ED Course: 11:51 Patient arrived in ED. eh3 11:54 Triage completed. eh3 11:54 Arm band placed on. eh3 11:56 Wil Iraheta MD is Attending Physician. kdr 11:58 Patient has correct armband on for positive identification. Bed in low position. Call eh3 light in reach. Side rails up X2. Adult w/ patient. Provided Education on: Use of call saucedo. Client placed on continuous cardiac and pulse oximetry monitoring. NIBP monitoring applied. 12:03 Jordyn Mooney, RN is Primary Nurse. eh3 13:00 Inserted saline lock: 22 gauge in right upper arm, using aseptic technique. Blood eh3 collected. 13:17 CT Traumagram (Head C Spine CAP wo con) In Process Unspecified. EDMS 15:05 No provider procedures requiring assistance completed. IV discontinued, intact, eh3 bleeding controlled, No redness/swelling at site. Pressure dressing applied. Administered Medications: No medications were administered Medication: 15:05 VIS not applicable for this client. eh3 Outcome: 14:44 Discharge ordered by . kdr 15:05 Discharged to home via wheelchair, with family, eh3 15:05 Condition: stable 15:05 Discharge instructions given to patient, family, Instructed on discharge instructions, follow up and referral plans. medication usage, Demonstrated understanding of instructions, follow-up care, medications, Prescriptions given X 1, 15:06 Patient left the ED. eh3 Signatures: Dispatcher [employer] EDVT Wil Iraheta MD MD kdr Jordyn Mooney, JEREMY RN eh3 Corrections: (The following items were deleted from the chart) 11:55 11:54 PMHx: prostate pills; eh3 eh3 13:14 13:00 Reassessment: Patient and/or family updated on plan of care and expected eh3 duration. Pain level reassessed. Patient is alert, oriented x 3, equal unlabored respirations, skin warm/dry/pink. eh3
--- NOTE | 2023-04-19 14:45 | EDPHYS ---
Physician Documentation [facility] Name: Durga Sequeira Age: 82 yrs Sex: Male : 1940 Arrival Date: 04/19/2023 Time: 11:49 Bed 19 Private MD: ED Physician Wil Iraheta HPI: 04/19 13:28 This 82 yrs old Male presents to ER via EMS with complaints of Fall Injury. kdr 13:29 Patient reportedly (by EMS) fell onto the floor from bed while attempting to stand up kdr this morning. Patient denies LOC. Patient's daughter found him on the floor. Patient has a small abrasion to the right forehead and right lower lip but otherwise no active bleeding is noted. Daughter states that the patient is a daily alcohol user and may in fact be intoxicated at this time. Patient's had a history of multiple falls in the last few months, possibly related to his alcohol use. Patient has also been seen here previously and noted to have some degree of dementia. Patient is completely nontoxic on initial presentation but is otherwise hard of hearing and hard to get a good history from.. Onset: The symptoms/episode began/occurred at an unknown time. Severity of symptoms: At their worst the symptoms were mild moderate just prior to arrival, in the emergency department the symptoms are unchanged. The patient has experienced similar episodes in the past, chronically, It is unknown whether or not the patient has had similar symptoms in the past. The patient has not recently seen a physician. Historical: - Allergies: 11:54 PENICILLINS; eh3 - Home Meds: 11:54 Propranolol Oral [Active]; tamsulosin oral [Active]; finasteride oral [Active]; eh3 - PMHx: 11:54 Dementia; Hypertension; BPH; eh3 - Immunization history:: Adult Immunizations unknown. - Social history:: Smoking status: unknown. ROS: 13:29 Constitutional: Negative for fever, chills, and weight loss, Eyes: Negative for injury, kdr pain, redness, and discharge, Neck: Negative for injury, pain, and swelling, Cardiovascular: Negative for chest pain, palpitations, and edema, Respiratory: Negative for shortness of breath, cough, wheezing, and pleuritic chest pain, Abdomen/GI: Negative for abdominal pain, nausea, vomiting, diarrhea, and constipation, Back: Negative for injury and pain, : Negative for injury, bleeding, discharge, and swelling, MS/Extremity: Negative for injury and deformity, Skin: Negative for injury, rash, and discoloration, Psych: Negative for depression, anxiety, suicide ideation, homicidal ideation, and hallucinations, Allergy/Immunology: Negative for hives, rash, and allergies, Endocrine: Negative for neck swelling, polydipsia, polyuria, polyphagia, and marked weight changes, Hematologic/Lymphatic: Negative for swollen nodes, abnormal bleeding, and unusual bruising, 13:29 Neuro: Positive for Confused but responds to questions, Exam: 13:29 Constitutional: This is a well developed, well nourished patient who is awake, alert, kdr and in no acute distress. Head/Face: Normocephalic, atraumatic. Neck: Trachea midline, no thyromegaly or masses palpated, and no cervical lymphadenopathy. Supple, full range of motion without nuchal rigidity, or vertebral point tenderness. No Meningismus. Chest/axilla: Normal chest wall appearance and motion. Nontender with no deformity. No lesions are appreciated. Cardiovascular: Regular rate and rhythm with a normal S1 and S2. No gallops, murmurs, or rubs. Normal PMI, no JVD. No pulse deficits. Respiratory: Lungs have equal breath sounds bilaterally, clear to auscultation and percussion. No rales, rhonchi or wheezes noted. No increased work of breathing, no retractions or nasal flaring. Abdomen/GI: Soft, non-tender, with normal bowel sounds. No distension or tympany. No guarding or rebound. No evidence of tenderness throughout. Back: No spinal tenderness. No costovertebral tenderness. Full range of motion. Skin: Warm, dry with normal turgor. Normal color with no rashes, no lesions, and no evidence of cellulitis. MS/ Extremity: Pulses equal, no cyanosis. Neurovascular intact. Full, normal range of motion. 13:29 Skin: injury, abrasion(s), very small abrasion noted, small abrasion noted, of the kdr forehead, Vital Signs: 11:51 BP 156 / 74; Pulse 86; Resp 18; Temp 98.7(O); Pulse Ox 100% ; Weight 74.84 kg; Height 6 eh3 ft. 1 in. ; Pain 0/10; 12:45 BP 147 / 98; Pulse 80; Resp 16; Pulse Ox 99% on R/A; eh3 13:45 BP 164 / 108; Pulse 97; Resp 16; Pulse Ox 99% on R/A; eh3 14:45 BP 134 / 116; Pulse 100; Resp 18; Pulse Ox 98% on R/A; eh3 11:51 Body Mass Index 21.77 (74.84 kg, 185.42 cm) eh3 11:51 Pain Scale: Adult eh3 MDM: 13:29 Data reviewed: vital signs, nurses notes. kdr 14:44 Patient medically screened. kdr 04/19 12:07 Order name: CBC with Diff; Complete Time: 14:45 kdr 04/19 12:07 Order name: CMP; Complete Time: 14:12 kdr 04/19 12:07 Order name: ETOH Level; Complete Time: 14:03 kdr 04/19 13:56 Order name: CBC Smear Scan; Complete Time: 14:45 EDMS 04/19 12:07 Order name: CT Traumagram (Head C Spine CAP wo con); Complete Time: 13:58 kdr Administered Medications: No medications were administered Disposition Summary: 04/19/23 14:44 Discharge Ordered Notes: Location: Home kdr Problem: new kdr Symptoms: have improved kdr Condition: Stable kdr Diagnosis - Fall from non-moving wheelchair kdr - Fall on same level, unspecified kdr - L1 spinous process fracture minimally displaced. kdr - Multiple fractures of ribs, right side, initial encounter for closed fracture kdr Followup: kdr - With: Private Physician - When: 2 - 3 days - Reason: If symptoms return, Further diagnostic work-up, Recheck today's complaints, Continuance of care, Re-evaluation by your physician Discharge Instructions: - Discharge Summary Sheet kdr - Rib Fracture kdr - Lumbar Spine Fracture kdr Forms: - Medication Reconciliation Form kdr - Thank You Letter kdr - Patient Portal Instructions kdr - Leadership Thank You Letter kdr Prescriptions: - Ibuprofen 600 mg Oral tablet - take 1 tablet ORAL route every 6 hours As needed take with food; 15 tablet; kdr Refills: 0, Product Selection Permitted Signatures: Dispatcher [employer] EDMS Wil Iraheta MD MD kdr Jordyn Mooney RN RN eh3 Corrections: (The following items were deleted from the chart) 11:55 11:54 PMHx: prostate pills; eh3 eh3 13:32 13:29 Constitutional: This is a well developed, well nourished patient who is awake, kdr alert, and in no acute distress. Head/Face: Normocephalic, atraumatic. Neck: Trachea midline, no thyromegaly or masses palpated, and no cervical lymphadenopathy. Supple, full range of motion without nuchal rigidity, or vertebral point tenderness. No Meningismus. Chest/axilla: Normal chest wall appearance and motion. Nontender with no deformity. No lesions are appreciated. Cardiovascular: Regular rate and rhythm with a normal S1 and S2. No gallops, murmurs, or rubs. Normal PMI, no JVD. No pulse deficits. kdr
== END 2023-04-19 15:06 | disposition home or self-care (01) ==
LOC: ER 11:49
DX: S22.41XA Multiple fractures of ribs, right side, initial encounter for closed fracture (principal); S32.019A Unspecified fracture of first lumbar vertebra, initial encounter for closed fracture; W05.0XXA Fall from non-moving wheelchair, initial encounter; F03.90 Unspecified dementia, unspecified severity, without behavioral disturbance, psychotic disturbance, mood disturbance, and anxiety; I10 Essential (primary) hypertension; Z88.0 Allergy status to penicillin
CPT/HCPCS: 36415; 70450; 71250; 72125; 80053; 82077; 85025; 99284

== ENCOUNTER 2023-05-23 10:24 | Emergency (ER) | payer OTHER ==
[2023-05-23 11:29] LABS: Absolute Lymphocytes (CBC) 0.8 K/uL (0.7-4.9); Hematocrit 43.1 % (39.6-49.0); Lymphocytes % 9.3 % (15.3-44.8); MCV 91.7 fL (80-100); MPV 9.3 fL (7.6-11.3); Platelets 204 thou/uL (152-406)
[2023-05-23 11:31] LABS: Protime INR 1.1
[2023-05-23 11:49] LABS: Albumin 3.1 g/dL (3.4-5.0); Bilirubin Direct 0.2 mg/dL (0-0.2); Bilirubin Indirect, Calculated 0.3 mg/dL (0.2-0.8); Bilirubin Total 0.5 mg/dL (0.2-1.0); Magnesium 2.3 mg/dL (1.6-2.4); Potassium 3.8 mEq/L (3.5-5.1); Protein, Total 6.9 g/dL (6.4-8.2); Troponin High Sensitivity 7.4 pg/mL (<58.9)
--- NOTE | 2023-05-23 12:32 | ER ---
Nurse's Notes [facility] Name: Durga Sequeira Age: 83 yrs Sex: Male : 1940 Arrival Date: 05/23/2023 Time: 10:24 Bed 20 Private MD: Marc Luque V Diagnosis: Cough, pneumonia, generalized weakness. Presentation: 05/23 10:35 Chief complaint: Patient states: Cough, congestion, weak, no appetite since at least ll1 Friday. Coronavirus screen: Vaccine status: Patient reports receiving the 1st dose of the Covid vaccine. Client denies travel out of the [place] in the last 14 days. congestion, cough unrelated to allergies, fatigue, Client presents with at least one sign or symptom that may indicate coronavirus-19. Standard/surgical mask placed on the client. Ebola Screen: Patient denies travel to an Ebola-affected area in the 21 days before illness onset. Resp Distress? Mild respiratory distress is noted. Initial Sepsis Screen: Does the patient meet any 2 criteria? No. Patient's initial sepsis screen is negative. Does the patient have a suspected source of infection? Yes: Productive cough/pneumonia. Risk Assessment: Do you want to hurt yourself or someone else? Patient reports no desire to harm self or others. Onset of symptoms was May 21, 2023. 10:35 Method Of Arrival: Wheelchair ll1 10:35 Acuity: LATANYA 3 ll1 Triage Assessment: 10:36 General: Appears uncomfortable, ill, Behavior is calm, cooperative, appropriate for ll1 age. Pain: Denies pain. EENT: Parent/caregiver reports the patient having nasal congestion. Respiratory: Parent/caregiver reports the patient having shortness of breath cough that is labored breathing. GI: Reports intolerance of fluids, intolerance of food, no appetite. 14:57 Respiratory: Breath sounds are clear bilaterally. ll1 Historical: - Allergies: 10:35 PENICILLINS; ll1 - PMHx: 10:35 BPH; Dementia; Hypertension; ll1 - Immunization history:: Adult Immunizations up to date. - Social history:: Smoking status: Patient reports the use of cigarette tobacco products, cigars. Screenin:57 [facility] ED Fall Risk Assessment (Adult) Score/Fall Risk Level 3 or more points = High ll1 Risk Oriented to surroundings, Maintained a safe environment, Educated pt \T\ family on fall prevention, incl call for assistance when getting out of bed, Used ambulatory aids as needed (educated on \T\ assisted with), Remained with patient while ambulating. Abuse screen: Denies threats or abuse. Nutritional screening: No deficits noted. Tuberculosis screening: No symptoms or risk factors identified. Assessment: 11:20 Reassessment: No changes from previously documented assessment. Patient and/or family ll1 updated on plan of care and expected duration. Pain level reassessed. 14:57 Cardiovascular: Capillary refill < 3 seconds. Respiratory: Airway is patent Breath ll1 sounds are clear bilaterally. 15:00 Reassessment: No changes from previously documented assessment. Patient and/or family ll1 updated on plan of care and expected duration. Pain level reassessed. Vital Signs: 10:35 BP 190 / 75; Pulse 67; Resp 20; Temp 97.8; Pulse Ox 85% on R/A; Pain 0/10; ll1 10:41 Pulse Ox 90% on NC; FiO2 4 %; ll1 11:30 BP 183 / 98; Pulse 66; Resp 18; Pulse Ox 95% on 5 lpm NC; eh3 12:30 BP 171 / 91; Pulse 70; Resp 18; Pulse Ox 96% on 5 lpm NC; eh3 13:30 BP 163 / 81; Pulse 61; Resp 16; Pulse Ox 95% on 5 lpm NC; eh3 14:55 BP 161 / 61; Pulse 66; Resp 17; Pulse Ox 96% on R/A; ll1 10:35 Pain Scale: Adult ll1 ED Course: 10:27 Patient arrived in ED. as 10:27 Cely Young MD is Attending Physician. sp3 10:28 Marc Luque MD is Private Physician. as 10:35 Arm band placed on. ll1 10:37 Triage completed. ll1 11:21 Blood Culture Adult (2) Sent. bc6 11:21 Lactate w/ 2H reflex if indic. Sent. bc6 11:22 Basic Metabolic Panel Sent. bc6 11:22 CBC with Diff Sent. bc6 11:22 LFT's Sent. bc6 11:22 Magnesium Sent. bc6 11:22 NT PRO-BNP Sent. bc6 11:22 PT-INR Sent. bc6 11:22 Inserted saline lock: 20 gauge in right antecubital area, using aseptic technique. bc6 Blood collected. 11:29 XRAY Chest (1 view) In Process Unspecified. EDMS 11:30 Jordyn Mooney, RN is Primary Nurse. [facility] 14:57 Patient has correct armband on for positive identification. Bed in low position. Call ll1 light in reach. Provided Education on: n/a. 14:57 No provider procedures requiring assistance completed. IV discontinued, intact, ll1 bleeding controlled, No redness/swelling at site. Pressure dressing applied. Administered Medications: 13:30 Drug: levofloxacin IVPB 500 mg 100 ml IVPB once over 60 mins Volume: 100 ml; Route: [facility] IVPB; Infused Over: 60 mins; Site: left antecubital; 14:55 Follow up: Response: No adverse reaction; IV Status: Completed infusion; IV Intake: ll1 100ml 13:30 Drug: DuoNeb Nebulize (3:1) (2.5 mg - 0.5 mg) 3 ml Nebulizer once Route: Nebulizer; [facility] 14:14 Follow up: Response: No adverse reaction [facility] Medication: 15:10 VIS not applicable for this client. ll1 Intake: 14:55 IV: 100ml; Total: 100ml. 1 Outcome: 12:31 Discharge ordered by . sp3 14:57 Patient left the ED. 1 14:57 Discharged to home via wheelchair, 1 14:57 Condition: stable 14:57 Discharge instructions given to patient, family, Instructed on discharge instructions, follow up and referral plans. medication usage, Demonstrated understanding of instructions, follow-up care, medications, Prescriptions given X 2, Signatures: Dispatcher [employer] EDID Anika Martinez Lynsay, RN RN ll1 Cely Young MD MD 3 Jordyn Mooney, JEREMY RN 3 Sarah Beth Magdaleno bc6 Corrections: (The following items were deleted from the chart) 10:43 10:41 Pulse Ox 88% Nasal Cannula FiO2 4%; ll1 ll1
--- NOTE | 2023-05-23 12:32 | EDPHYS ---
Physician Documentation [facility] Name: Durga Sequeira Age: 83 yrs Sex: Male : 1940 Arrival Date: 05/23/2023 Time: 10:24 Bed 20 Private MD: Marc Luque V ED Physician Cely Young HPI: 05/23 11:17 This 83 yrs old Male presents to ER via Wheelchair with complaints of Cough, sp3 Congestion, Weakness, Decreased Appetite. 11:17 83-year-old male with history of dementia, hypertension now presents to the ED with sp3 family for generalized weakness, decreased responsiveness, coughing, congestion and possible pneumonia. Patient's room air pulse oxygenation on arrival was 85%. Patient only recently came to current family members 2 days ago and so not a lot of prior history of the current illness is known. [id number] who is with him states that patient's daughter who has been taking care of him has not "been on top of it". Patient has dementia and limited speech. He denies any chest pain, back pain or other concerning findings. He does endorse cough and shortness of breath.. Historical: - Allergies: 10:35 PENICILLINS; ll1 - PMHx: 10:35 BPH; Dementia; Hypertension; ll1 - Immunization history:: Adult Immunizations up to date. - Social history:: Smoking status: Patient reports the use of cigarette tobacco products, cigars. ROS: 11:19 Unable to obtain ROS due to baseline dementia, sp3 Exam: 11:19 Constitutional: This is a well developed, well nourished patient who is awake, alert, sp3 and in no acute distress. Head/Face: Normocephalic, atraumatic. Eyes: Pupils equal round and reactive to light, extra-ocular motions intact. Lids and lashes normal. Conjunctiva and sclera are non-icteric and not injected. Cornea within normal limits. Periorbital areas with no swelling, redness, or edema. ENT: Nares patent. No nasal discharge, no septal abnormalities noted. External auditory canals are clear. Oropharynx with no redness, swelling, or masses, exudates, or evidence of obstruction, uvula midline. Mucous membranes moist. Neck: Trachea midline, no thyromegaly or masses palpated, and no cervical lymphadenopathy. Supple, full range of motion without nuchal rigidity, or vertebral point tenderness. No Meningismus. Chest/axilla: Normal chest wall appearance and motion. Nontender with no deformity. No lesions are appreciated. Cardiovascular: Regular rate and rhythm with a normal S1 and S2. No gallops, murmurs, or rubs. Normal PMI, no JVD. No pulse deficits. Abdomen/GI: Soft, non-tender, with normal bowel sounds. No distension or tympany. No guarding or rebound. No evidence of tenderness throughout. Back: No spinal tenderness. No costovertebral tenderness. Full range of motion. MS/ Extremity: Pulses equal, no cyanosis. Neurovascular intact. Full, normal range of motion. Psych: Awake, alert, with orientation to person, place and time. Behavior, mood, and affect are within normal limits. 11:19 Respiratory: Coarse breath sounds bilaterally and active cough., 11:22 ECG was reviewed by the Attending Physician. EKG demonstrates normal sinus rhythm at 64 sp3 bpm with normal intervals, normal QRS, normal axis, normal ST/T changes without evidence of acute ischemia. Vital Signs: 10:35 BP 190 / 75; Pulse 67; Resp 20; Temp 97.8; Pulse Ox 85% on R/A; Pain 0/10; ll1 10:41 Pulse Ox 90% on NC; FiO2 4 %; ll1 11:30 BP 183 / 98; Pulse 66; Resp 18; Pulse Ox 95% on 5 lpm NC; eh3 12:30 BP 171 / 91; Pulse 70; Resp 18; Pulse Ox 96% on 5 lpm NC; eh3 13:30 BP 163 / 81; Pulse 61; Resp 16; Pulse Ox 95% on 5 lpm NC; eh3 14:55 BP 161 / 61; Pulse 66; Resp 17; Pulse Ox 96% on R/A; ll1 10:35 Pain Scale: Adult ll1 MDM: 10:45 Patient medically screened. sp3 11:19 Data reviewed: vital signs, nurses notes, lab test result(s), EKG, radiologic studies. sp3 ED course: 83-year-old male with shortness of breath, cough and congestion. Differential diagnosis includes pneumonia, influenza, COVID-19, CHF, bronchitis, among others. I am not highly suspicious for acute coronary syndrome, sepsis, shock, vascular pathology including aortic dissection and/or aneurysm, or any other critical process at this time. Work-up will include EKG, chest x-ray, laboratory values, swabs, and general observation. Likely admission to hospital given his hypoxia.. 12:30 ED course: Mild pneumonia noted in the right lower lobe. Remainder of laboratory values 3 are within normal limits including lactate and WBC count. We will administer Levaquin 500 mg IV here and discharge patient on p.o. Levaquin with follow-up to the PCP.. 05/23 10:47 Order name: Basic Metabolic Panel; Complete Time: 12: sp3 05/23 10:47 Order name: CBC with Diff; Complete Time: 12: 3 05/23 10:47 Order name: LFT's; Complete Time: 12: sp3 05/23 10:47 Order name: Magnesium; Complete Time: 12: sp3 05/23 10:47 Order name: NT PRO-BNP; Complete Time: 12: 3 05/23 10:47 Order name: PT-INR; Complete Time: 12: 3 05/23 10:47 Order name: Troponin HS; Complete Time: 12: sp3 05/23 10:47 Order name: Flu; Complete Time: 12: 3 05/23 10:47 Order name: COVID-19 SARS RT PCR; Complete Time: 12: sp3 05/23 10:47 Order name: Lactate w/ 2H reflex if indic.; Complete Time: 12:29 3 05/23 10:47 Order name: Blood Culture Adult (2) 3 05/23 10:47 Order name: XRAY Chest (1 view); Complete Time: 13:23 3 05/23 10:47 Order name: EKG; Complete Time: 10:47 sp3 05/23 10:47 Order name: Cardiac monitoring; Complete Time: 11:30 3 05/23 10:47 Order name: EKG - Nurse/Tech; Complete Time: 11:21 sp3 05/23 10:47 Order name: IV Saline Lock; Complete Time: 11: sp3 05/23 10:47 Order name: Labs collected and sent; Complete Time: 11: 3 05/23 10:47 Order name: O2 Per Protocol; Complete Time: 11: 3 05/23 10:47 Order name: O2 Sat Monitoring; Complete Time: 11:30 sp3 Administered Medications: 13:30 Drug: levofloxacin IVPB 500 mg 100 ml IVPB once over 60 mins Volume: 100 ml; Route: eh3 IVPB; Infused Over: 60 mins; Site: left antecubital; 14:55 Follow up: Response: No adverse reaction; IV Status: Completed infusion; IV Intake: ll1 100ml 13:30 Drug: DuoNeb Nebulize (3:1) (2.5 mg - 0.5 mg) 3 ml Nebulizer once Route: Nebulizer; 3 14:14 Follow up: Response: No adverse reaction eh3 Disposition Summary: 05/23/23 12:31 Discharge Ordered Notes: Location: Home sp3 Condition: Stable sp3 Diagnosis - Cough, pneumonia, generalized weakness. sp3 Followup: sp3 - With: Private Physician - When: Upon discharge from the Emergency Department - Reason: Continuance of care Discharge Instructions: - Discharge Summary Sheet sp3 - Community-Acquired Pneumonia, Adult sp3 Forms: - Medication Reconciliation Form sp3 - Thank You Letter sp3 - Antibiotic Education sp3 - Prescription Opioid Use sp3 - Patient Portal Instructions sp3 - Leadership Thank You Letter sp3 Prescriptions: - Tessalon Perles 100 mg Oral Capsule - take 1 capsule ORAL route every 8 hours As needed; 15 capsule; Refills: 0, sp3 Product Selection Permitted - levofloxacin 500 mg Oral tablet - take 1 tablet ORAL route once daily for 7 days; 7 tablet; Refills: 0, Product sp3 Selection Permitted Signatures: Dispatcher [employer] Zoie Noble RN RN 1 Cely Young MD MD sp3 Jordyn Mooney RN RN eh3
--- NOTE | 2023-05-23 12:44 | RAD REPORT ---
EXAM DESCRIPTION: Parveen Single View05/23/2023 11:27 am CLINICAL HISTORY: Cough COMPARISON: none FINDINGS: Lungs are moderately hyperaerated. Mild opacity right lung base Left lung appears clear of acute infiltrate The heart is normal size IMPRESSION: COPD Mild right basilar opacity probably a mild infiltrate
[2023-05-23] MEDS ORDERED: ALBUTEROL 2.5 MG/3 ML NEB SOL ONE (13:46)
[2023-05-23] MEDS ORDERED: IPRATROPIUM BROM 0.5MG/2.5ML ONE (13:47)
[2023-05-23] MEDS ORDERED: Levofloxacin500mg IV 500 MG/100 ML BAG IV ONE (13:47)
[2023-05-23 15:12] VITALS: TEMP 97.8
[2023-05-23 15:30] VITALS: BP 163/81; O2SAT 95
--- NOTE | 2023-05-26 16:55 | EKG ---
Test Date: 2023-05-23 Test Time: 11:03:03 Personal Lines Agent: KALIA MEASUREMENT RESULTS: Intervals: Rate: 64 MN: 194 QRSD: 80 QT: 418 QTc: 431 [place]: P: 64 MN: 194 QRS: 54 T: 83 INTERPRETIVE STATEMENTS: Normal sinus rhythm Normal ECG Compared to ECG 03/07/2023 09:33:53 No significant changes Electronically Signed On 05-26-23 16:52:36 REGULATORY INTERN by Avery Mclaughlin
== END 2023-05-23 14:57 | disposition home or self-care (01) ==
LOC: ER 10:24
DX: J18.9 Pneumonia, unspecified organism (principal); R53.1 Weakness; Z11.52 Encounter for screening for COVID-19; Z72.0 Tobacco use; Z88.0 Allergy status to penicillin
CPT/HCPCS: 96365; 93005; 87040 ×2; 85025; 80048; 36415; 83735; 85610; 80076; 83605; 84484; 83880; 87635; 87804 ×2; 71045; 94640; 99285; J7613; J7644

== ENCOUNTER 2023-06-02 07:38 | Emergency (ER) | payer OTHER ==
--- NOTE | 2023-06-02 08:19 | RAD REPORT ---
EXAM DESCRIPTION: CT - Head C Spine Cap Wo Con - 06/02/2023 7:51 am CLINICAL HISTORY: Trauma, head and neck injury. Chest, abdomen and pelvis pain. fall, head injury, weak COMPARISON: Head C Spine Cap Wo Con dated 04/19/2023; Head C Spine Cap Wo Con dated 03/07/2023; Head C Spine Cap Wo Con dated 02/13/2023 TECHNIQUE: CT head without contrast. CT cervical spine without contrast with coronal and sagittal reformatted images. CT chest, abdomen and pelvis with coronal and sagittal reformatted images of the spine. All CT scans are performed using dose optimization technique as appropriate and may include automated exposure control or mA/KV adjustment according to patient size. FINDINGS: CT HEAD WITHOUT CONTRAST: Small focus of extra-axial hypoattenuation that is new from prior on image 20, series 201 along the l eft frontal lobe. No acute large vascular territory infarct. Cerebral atrophy. Chronic small vessel i schemic changes. The paranasal sinuses and mastoids are clear. The calvarium is intact. CT CERVICAL SPINE WITHOUT CONTRAST: No fracture or subluxation. The prevertebral soft tissues are normal in thickness. CT CHEST, ABDOMEN, PELVIS: Thorax: Chest Wall: No abnormal mass Lungs: Mild nodularity in the right lower lobe which has increased from prior. The Pleura: Small right pleural effusion. Linda/Mediastinum: No lymphadenopathy. Aorta/Pulmonary Arteries: Unremarkable Heart: Normal size. Aortic valve calcifications. Coronary artery calcifications. Abdomen/Pelvis: Liver: Too small to characterize liver lesions which are likely benign. Biliary: No biliary ductal dilatation. Stomach: No significant focal abnormality. Duodenum: No significant focal abnormality. Pancreas: No significant abnormality. Spleen: No significant abnormality. Adrenal: No suspicious lesions. Kidney/ureter: No hydronephrosis. No renal calculi. Septated left renal cyst is unchanged. Right lowe r pole exophytic lesion is unchanged. Retroperitoneum: No retroperitoneal adenopathy. Vascular: No aneurysm. Atherosclerosis . Bowel: No significant focal abnormality. Peritoneum: No ascites or free air. Bladder: Grossly unremarkable. Reproductive: No adnexal masses. Bones: No acute fracture. Multilevel degenerative changes are present in the spine. Subacute right-si ded rib fractures and right L1 transverse process fracture. Remote sternal fracture. Other: n/a IMPRESSION: 1. Small focus of extra-axial hyperattenuation at the left frontal lobe could represent a trace subdural hematoma. Consider short-term CT follow-up. 2. No acute fracture traumatic malalignment cervical spine. 3. No evidence of significant trauma to the chest, abdomen, or pelvis. 4. Minimal right lower lobe nodularity that is new from prior with small right effusion could represe nt a mild or recent pneumonia or sequela of pneumonitis .
--- NOTE | 2023-06-02 08:32 | RAD REPORT ---
EXAM DESCRIPTION: RAD - Femur Left - 06/02/2023 8:25 am CLINICAL HISTORY: fall COMPARISON: No comparisons FINDINGS/IMPRESSION: No acute fracture. No malalignment. Mild left acetabular degenerative changes.
--- NOTE | 2023-06-02 08:32 | RAD REPORT ---
EXAM DESCRIPTION: RAD - Femur Right - 06/02/2023 8:25 am CLINICAL HISTORY: fall COMPARISON: No comparisons FINDINGS/IMPRESSION: No acute fracture. No malalignment. Mild right acetabular degenerative changes. Peripheral vascular calcifications.
--- NOTE | 2023-06-02 08:33 | RAD REPORT ---
EXAM DESCRIPTION: RAD - Shoulder Left 2 View - 06/02/2023 8:25 am CLINICAL HISTORY: PAIN COMPARISON: Head C Spine Cap Wo Con dated 06/02/2023 FINDINGS/IMPRESSION: No acute fracture. No malalignment. Mild left glenohumeral joint degenerative c hanges.
--- NOTE | 2023-06-02 08:38 | ER ---
Nurse's Notes [facility] Name: Durga Sequeira Age: 83 yrs Sex: Male : 1940 Arrival Date: 06/02/2023 Time: 07:38 Bed 5 Private MD: Diagnosis: Traumatic subdural hemorrhage;Fall on same level, unspecified;Contusion of left shoulder Presentation: 06/02 07:45 Chief complaint: EMS states: patient lives with daughter who says he fell about 0200, ko1 she says this is his normal and he has dementia. The other daughter who does not live there says this is not his normal. He is not on blood thinners but he did hit his head on the left side and the forehead, also bruising noted to the left shoulder and a skin tear to the left forearm. Coronavirus screen: At this time, the client does not indicate any symptoms associated with coronavirus-19. Ebola Screen: No symptoms or risks identified at this time. Initial Sepsis Screen: Does the patient meet any 2 criteria? No. Patient's initial sepsis screen is negative. Does the patient have a suspected source of infection? No. Patient's initial sepsis screen is negative. Risk Assessment: Do you want to hurt yourself or someone else? Patient reports no desire to harm self or others. Onset of symptoms was June 02, 2023 at 02:00. 07:45 Method Of Arrival: EMS: [facility] ko1 07:45 Acuity: LATANYA 3 ko1 Triage Assessment: 07:59 General: Appears in no apparent distress. comfortable, slender, unkempt, Behavior is ko1 calm, cooperative, appropriate for age. Pain: Denies pain. Historical: - Allergies: 07:59 PENICILLINS; ko1 - Home Meds: 07:59 finasteride oral [Active]; Propranolol Oral [Active]; tamsulosin oral [Active]; ko1 - PMHx: 07:59 BPH; Dementia; Hypertension; ko1 - Immunization history:: Adult Immunizations unknown. - Social history:: Smoking status: Patient/guardian denies using tobacco, but has a distant history of tobacco abuse. - Family history:: not pertinent. - Hospitalizations: : No recent hospitalization is reported. Screenin:00 [facility] ED Fall Risk Assessment (Adult) History of falling in the last 3 months, ko1 including since admission Yes- single mechanical fall (1 pt) Confusion or Disorientation Yes (5 pts) Intoxicated or Sedated No (0 pts) Impaired Gait Yes (1 pt) Mobility Assist Device Used Yes (1 pt) Altered Elimination Yes (1 pt) Score/Fall Risk Level 3 or more points = High Risk Oriented to surroundings, Maintained a safe environment, Educated pt \T\ family on fall prevention, incl call for assistance when getting out of bed, Assessed \T\ reinforced patient's understanding of fall precautions, Provided non-skid footwear, Hourly rounding (assess needs \T\ fall precautionary measures) done, Used ambulatory aids as needed (educated on \T\ assisted with), Used gait belt as appropriate Implemented a Fall Risk Plan of Care, Apply high fall risk patient identification: yellow non skid footwear/ fall signage, Remained w/in arm's length of patient and in sight while toileting, Offered frequent toileting (1:1 observation), Remained with patient while ambulating, Utilized family, sitter, or virtual bellows charger assembler as indicated. Abuse screen: Denies threats or abuse. Denies injuries from another. Nutritional screening: No deficits noted. Tuberculosis screening: No symptoms or risk factors identified. Assessment: 08:00 General: Appears unkempt, emaciated. Pain: Denies pain. Neuro: Level of Consciousness ko1 is awake, alert, [employer] Consultant are equal bilaterally Moves all extremities. Cardiovascular: No deficits noted. Respiratory: No deficits noted. GI: No deficits noted. : No deficits noted. EENT: No deficits noted. Derm: No deficits noted. Musculoskeletal: No deficits noted. Vital Signs: 08:00 BP 154 / 82; Pulse 58; Resp 18; Temp 97; Pulse Ox 95% on R/A; ko1 08:51 BP 136 / 95; Pulse 70; Resp 18; Pulse Ox 96% ; Weight 56.7 kg; ph 09:26 BP 164 / 92; Pulse 64; Resp 18; Pulse Ox 95% ; ko1 09:54 BP 147 / 98; Pulse 68; Resp 18; Pulse Ox 95% on R/A; ko1 ED Course: 07:43 Patient arrived in ED. rn 07:44 Benja Beth MD is Attending Physician. rn 07:53 CT Traumagram (Head C Spine CAP wo con) In Process Unspecified. EDMS 07:54 Rebecca Jiang, RN is Primary Nurse. ko1 07:59 Triage completed. ko1 07:59 Arm band placed on right wrist. Patient placed in an exam room, on a stretcher, on ko1 security monitor, on pulse oximetry, Patient notified of wait time. 08:00 Patient has correct armband on for positive identification. Allergy band placed. Fall ko1 risk band placed. Placed in gown. Bed in low position. Call light in reach. Side rails up X2. Client placed on continuous cardiac and pulse oximetry monitoring. NIBP monitoring applied. potline monitor on. Door closed. Noise minimized. Lights dimmed. Warm blanket given. 08:00 No provider procedures requiring assistance completed. Inserted saline lock: 22 gauge ko1 in right antecubital area, using aseptic technique. Blood collected. 08:26 XRAY Shoulder LEFT 2 view In Process Unspecified. EDMS 08:26 XRAY Femur RIGHT In Process Unspecified. EDMS 08:27 XRAY Femur LEFT In Process Unspecified. EDMS 08:57 initiated transfer to [facility], pt accepted in transfer by dr benson admin bd approval given by viktor hidalgo,pt going to er. 09:18 Provided Education on: transfer. ko1 09:19 Patient transferred, IV remains in place. ko1 Administered Medications: 10:49 Drug: Ativan IVP 0.5 mg IVP once Route: IVP; Site: right antecubital; ko1 Medication: 08:00 VIS not applicable for this client. ko1 Outcome: 08:37 ER care complete, transfer ordered by . rn 11:32 Patient left the ED. ko1 Signatures: Dispatcher [employer] EDMS Alanna Aragon Roman, MD MD rn Hall, Patricia, RN RN Rebecca Jiang, RN RN ko1 Corrections: (The following items were deleted from the chart) 07:59 07:55 Chief complaint: ko1 ko1
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
[2023-06-02 08:52] LABS: Absolute Lymphocytes (CBC) 1.3 K/uL (0.7-4.9); Hematocrit 40.9 % (39.6-49.0); Lymphocytes % 22.1 % (15.3-44.8); MCV 90.5 fL (80-100); MPV 9.9 fL (7.6-11.3); Platelets 161 thou/uL (152-406); RBC Red Blood Cell Count 4.52 M/uL (4.33-5.43)
[2023-06-02 09:02] LABS: Protime INR 0.99
[2023-06-02 09:06] LABS: Potassium 4.2 mEq/L (3.5-5.1)
[2023-06-02] MEDS ORDERED: LORazepam 2 MG/ML VIAL ONE (11:05)
[2023-06-02 11:45] VITALS: TEMP 97; O2SAT 95
[2023-06-02 11:48] VITALS: BP 147/98
[2023-06-02 12:12] LABS: Blood Morphology Comment NOT SEEN (NOT SEEN); Platelet Estimate ADEQ; White Blood Cell Scan OK (OK)
== END 2023-06-02 11:32 | disposition short-term general hospital (02) ==
LOC: ER 07:38
DX: S06.5X0A Traumatic subdural hemorrhage without loss of consciousness, initial encounter (principal); S40.012A Contusion of left shoulder, initial encounter; W18.30XA Fall on same level, unspecified, initial encounter; I10 Essential (primary) hypertension; F03.90 Unspecified dementia, unspecified severity, without behavioral disturbance, psychotic disturbance, mood disturbance, and anxiety; Z88.0 Allergy status to penicillin
CPT/HCPCS: 36415; 70450; 71250; 72125; 80048; 85025; 85610; 85730; 93005; 96374; 99285